=== PATIENT | female | born 1975 | race Caucasian/White ===

== ENCOUNTER 2019-06-21 09:13 | Emergency (ER) | payer OTHER, SELFPAY ==
[2019-06-21 09:38] VITALS: BP 144/105; PULSE 82; RESP 18; TEMP 36.3; O2SAT 100
--- NOTE | 2019-06-21 09:38 | ED.URI ---
HPI - URI/Sore Throat General Chief Complaint: Ear Stated Complaint: sore throat/ear pain right/left History of Present Illness HPI Narrative: This is a 44-year-old female comes in complaining of having a sore throat and ear pain according to patient she was seen last week for the same exact thing in urgent care patient states that her influenza and her throat swab was negative patient is continued to get worse stating that it hurts when she swallows patiently currently does not have a fever denies any nausea vomiting and/or diarrhea Related Data Allergies Allergy/AdvReac Type Severity Reaction Status Date / Time No Known Allergies Allergy Unverified 03/12/17 09:23 NKFA Allergy Unknown Uncoded 12/19/05 08:28 Review of Systems Review of Systems: Narrative: CONSTITUTIONAL: Denies fever, chills, or sweats. EYES: Denies visual changes, redness, or discharge. ENT: Reports rhinorrhea, congestion, sore throat, or otalgia. CARDIOVASCULAR:Denies chest pain, palpitations, or edema. RESPIRATORY: Denies cough or dyspnea. GASTROINTESTINAL: Denies abdominal pain, nausea, vomiting, or diarrhea. GENITOURINARY: Denies dysuria or hematuria. SKIN:[Denies rash or itching. MUSCULOSKELETAL:Denies back pain, joint pain, or myalgia. NEUROLOGIC: Denies headache, numbness, or weakness. PSYCHIATRIC:Denies anxiety or depression PMFSH Comments At time as signature, I have reviewed and agree with nursing past medical, social, surgical and family history. Please see nursing chart for further information. There is no relevant family history pertinent to the presenting complaint. Exam Narrative: Exam Narrative: GENERAL:Well-appearing, well-nourished, and in no acute distress. HEAD:Normocephalic, atraumatic. EYES: PERRLA and EOMI. ENT: Nares clear, no rhinorrhea or epistaxis. Mucous membranes moist. Pharyngeal erythema oral lesions in the back of the throat enlarged tonsils copious postnasal drainage TM bulging clear NECK: Supple. CHEST: Clear to auscultation. No respiratory distress. HEART: Regular rate and rhythm. No murmur heard. Normal peripheral pulses. ABDOMEN: Soft, nontender, nondistended, normal active bowel sounds. EXTREMITIES: Normal range of motion. No edema. SKIN: Warm, dry, no rash. NEURO: No focal deficits. Alert and oriented x3. Course Vital Signs Vital signs: Vital Signs Temperature 97.3 F L 06/21/19 09:38 Pulse Rate 82 06/21/19 09:38 Respiratory Rate 18 06/21/19 09:38 Blood Pressure 144/105 H 06/21/19 09:38 Pulse Oximetry 100 06/21/19 09:38 Temperature 97.3 F L 06/21/19 09:38 Pulse Rate 82 06/21/19 09:38 Respiratory Rate 18 06/21/19 09:38 Blood Pressure 144/105 H 06/21/19 09:38 Pulse Oximetry 100 06/21/19 09:38 MDM - URI/Sore Throat Differential Diagnosis Differential diagnosis: Likely upper respiratory infection, otitis media, viral infection and pharyngitis Lab Data Labs: Strep Screen Positive Group A Strep *(Reference Range: Negative)* Discharge Plan Discharge Clinical Impression: Strep throat Pharyngitis Qualifiers: Pharyngitis/tonsillitis etiology: unspecified etiology Qualified Code(s): J02.9 - Acute pharyngitis, unspecified Hypertension Qualifiers: Hypertension type: unspecified Qualified Code(s): I10 - Essential (primary) hypertension Patient Disposition: Home, Self-Care Condition: Stable Instructions: Antibiotic Form, Pharyngitis (ED), Strep Throat (ED), Hypertension (ED) Additional Instructions: You have tested positive, for Strep throat Please take all of your Antibiotics Salt water gargles may alleviate some of your throat discomfort. Take Tylenol and/or ibuprofen per the package instructions for pain/fever. Go to the ER if your symptoms become worse of if ANY new symptoms develop You need to call you PCP tomorrow to get additional refills there is no good reason for you to be without your blood pressure medication . I
== END 2019-06-21 10:20 | disposition home or self-care (01) ==
PROVIDERS: Emergency Provider Nurse Practitioner Family; PCP Registered Nurse
DX: J02.0 Streptococcal pharyngitis (principal); I10 Essential (primary) hypertension
CPT/HCPCS: 87880; 99213; G0463

== ENCOUNTER → 2020-03-17 10:12 | Outpatient (CLI) | payer OTHER, SELFPAY ==
--- NOTE | ~2020-03-17 | MM_ITS ---
EXAMINATION: MM screening [facility] BI w lisandro HISTORY: Screening mammogram TECHNIQUE: Craniocaudal and mediolateral oblique 3-D tomosynthesis images were obtained and synthetic 2-D images were generated. CAD analysis was submitted and interpreted. COMPARISON: 07/28/2015, 07/14/2015 BREAST PARENCHYMAL COMPOSITION: There are scattered areas of fibroglandular density. FINDINGS: A 1.6 cm mass in the upper outer quadrant of the right breast is stable since 2016, consist ent with a benign finding. There is no evidence of suspicious mass, calcification, or architectural d istortion to suggest malignancy in either breast. There has been no suspicious interval change. IMPRESSION: 1. No mammographic evidence of malignancy. 2. Recommend routine screening mammography in one year. BI-RADS Category 2: Benign finding(s). Reviewed, dictated and finalized at location A. TOLOGIST
== END ==
PROVIDERS: PCP Registered Nurse; Visit Provider Registered Nurse
DX: Z12.31 Encounter for screening mammogram for malignant neoplasm of breast (principal)
CPT/HCPCS: 77063; 77067

== ENCOUNTER 2020-07-20 09:23 | Emergency (ER) | payer OTHER, SELFPAY ==
--- NOTE | ~2020-07-20 | XR_ITS ---
EXAMINATION: XR shoulder LT min 2V DATE: 07/20/2020 09:57 INDICATION: Left shoulder pain post fall 2 days prior TECHNIQUE: AP internally and externally rotated, AP oblique externally rotated and transscapular Y vi ews of the left shoulder were obtained. COMPARISON: None FINDINGS: Normal alignment. No fracture. Glenohumeral joint is normal. Acromioclavicular joint is normal. Soft tissues are unremarkable. IMPRESSION: Negative left shoulder radiographs. Reviewed, dictated and finalized at location A.
--- NOTE | ~2020-07-20 | XR_ITS ---
EXAMINATION: XR elbow LT min 3V DATE: 07/20/2020 09:57 INDICATION: Left elbow pain post fall 2 days prior TECHNIQUE: Anteroposterior, two oblique and lateral views of the left elbow were obtained. COMPARISON: None. FINDINGS: Alignment is normal. No fracture or joint effusion. Joint spaces are normal. Left tissue with subcuta neous edema at the medial side of the elbow. IMPRESSION: 1. No left elbow joint effusion or osseous abnormality. Reviewed, dictated and finalized at location A.
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
[2020-07-20 09:34] VITALS: BP 149/91; PULSE 84; RESP 16; TEMP 36.8; O2SAT 99
[2020-07-20] MEDS: TETANUS,DIPHTHERIA,AC PERTUSSIS ADULT (0.5 ML) BOOSTRIX IM (10:20)
== END 2020-07-20 10:36 | disposition home or self-care (01) ==
PROVIDERS: Emergency Provider Nurse Practitioner; PCP Registered Nurse
DX: S46.912A Strain of unspecified muscle, fascia and tendon at shoulder and upper arm level, left arm, initial encounter (principal); S46.919A Strain of unspecified muscle, fascia and tendon at shoulder and upper arm level, unspecified arm, initial encounter; S50.819A Abrasion of unspecified forearm, initial encounter; V28.4XXA Motorcycle driver injured in noncollision transport accident in traffic accident, initial encounter; Z23 Encounter for immunization; I10 Essential (primary) hypertension
CPT/HCPCS: 73030; 73080; 90471; 90715; 99214; G0463

== ENCOUNTER → 2021-05-05 06:56 | Outpatient (CLI) | payer OTHER, SELFPAY ==
--- NOTE | ~2021-05-05 | MM_ITS ---
EXAMINATION: MM screening [facility] BI w lisandro HISTORY: Screening TECHNIQUE: Craniocaudal and mediolateral oblique 3-D tomosynthesis images were obtained and synthetic 2-D images were generated. CAD analysis was submitted and interpreted. COMPARISON: Comparison to multiple prior studies sequentially, with oldest reviewed study dated 07/13. BREAST PARENCHYMAL COMPOSITION: There are scattered areas of fibroglandular density. FINDINGS: Stable benign-appearing bilateral breast masses. There is no evidence of suspicious mass, c alcification, or architectural distortion to suggest malignancy in either breast. There has been no s uspicious interval change. IMPRESSION: 1. No mammographic evidence of malignancy. 2. Recommend routine screening mammography in one year. BI-RADS Category 2: Benign finding(s). Reviewed, dictated and finalized at location A. CAL PHYSICIST
== END ==
PROVIDERS: PCP Registered Nurse; Visit Provider Registered Nurse
DX: Z12.31 Encounter for screening mammogram for malignant neoplasm of breast (principal)
CPT/HCPCS: 77063; 77067

== ENCOUNTER 2021-12-19 15:17 | Outpatient (CLI) | payer BC, SELFPAY ==
--- NOTE | 2021-12-19 15:29 | ECG_ITS ---
Measurements Intervals [place] Rate: 73 P: 27 VA: 158 QRS: -22 QRSD: 102 T: 0 QT: 397 QTc: 440 Interpretive Statements SINUS RHYTHM VOLTAGE CRITERIA FOR LVH CANNOT RULE ANTERIOR MYOCARDIAL INFARCTION ABNORMAL ECG NO PREVIOUS ECG AVAILABLE FOR COMPARISON Electronically Signed On 12-19-2021 17:11:00 CDT by Ryan Adam M.D.
== END 2021-12-19 15:18 | disposition home or self-care (01) ==
LOC: ANHSURGERY 15:23
PROVIDERS: PCP Registered Nurse; Visit Provider Obstetrics & Gynecology
DX: N92.1 Excessive and frequent menstruation with irregular cycle (principal); I10 Essential (primary) hypertension; Z01.818 Encounter for other preprocedural examination; R94.31 Abnormal electrocardiogram [ECG] [EKG]
CPT/HCPCS: 36415; 86850; 86900; 86901; 93005

== ENCOUNTER 2021-12-21 01:32 | Day surgery (SDC) | payer BC, SELFPAY ==
[2021-12-18 10:33] VITALS: BMI 37.5
--- NOTE | 2021-12-18 10:45 | PC.NURSE ---
Report to the Outpatient Waiting Room, entrance under the green pavilion located off [facility], at time 6:00 on date 12/21/21. OR Time: 7:30. Time changes happen often and if your time is changed the preop area will call you the afternoon before. - You and your visitor will be asked to self-screen and do not enter if you have any COVID symptoms. - Only one visitor and NO children visitors are allowed at this time. YOU WILL BE ALLOWED 2 VISITORS AT A TIME ONCE YOU ARE IN YOUR ROOM AFTER SURGERY - The patient visitor is requested to leave or wait in car when not with patient due to restrictions. - A mask is required within the hospital. Patients may have clear liquids (water, carbonated beverages, clear teas, apple juice) until 3 hours prior to surgery (4:30) with a maximum of 20 ounces. - No food from midnight until time of surgery Take the following medications with a SIP of water the morning of surgery: NONE Medications to discontinue per physician: N/A Date to take last dose: N/A Please no make-up, nail slovenian, hairspray, perfume, deodorant, or body powder the day of surgery. No jewelry (including any body piercings) or valuables the day of surgery, leave them at home. Please take a shower or bath the night before, or the morning of, surgery with an antibacterial soap. Wear comfortable, loose fitting clothing. - Jewelry must be removed prior to entering the operating room. Rings and piercings that are not removed may be cut off. - The hospital will not accept responsibility for valuables. - Please leave all valuables, including medications, at home the day of surgery. If you are going home after surgery, a licensed wood pile driver operator must drive you home. - NO public transportation without another adult. - We recommend that an adult stay with you for 24 hours following discharge. - We also recommend that you do not drive, make important decision, drink alcoholic beverages, or take any drugs that were not prescribed by your health care provider for at least 24 hours after your discharge time. Follow any additional instructions given to you from your surgeon. If you or anyone in your household have experienced Covid symptoms in the past week, please notify your surgeon or the nurse liaison at the phone number below for possible testing. Telephone instructions given to PT - WAGNER REECE and asked if any additional questions and then verbalized understanding. Patient advised to call surgeon office or pre surgery nurse liaison [phone] if any additional questions.
--- NOTE | 2021-12-20 07:46 | PM.IMHP ---
H&P: HPI History of Present Illness Date/Time: 12/20/21 07:46 46-year-old 2 para 2000 female presents with complaints of menstrual cycle lasting 5-7 days with 2-3 days very heavy clotting and significant cramping. Os with pelvic pain and cramping between periods and has begun have intermenstrual spotting as well. She denies desire for any type of hormone manipulation, and desires definitive therapy in the form of hysterectomy. She has had an ultrasound which shows an enlarged uterus as well as uterine fibroid. Chief Complaint: Menometrorrhagia Review of Systems Review of Systems: All systems reviewed & are unremarkable except as noted in HPI and below PMFSH Past Medical History Medical History (Updated 12/20/21 @ 07:48 by Abdirizak Starks MD) Hypertension Menometrorrhagia Surgical History Surgical History History of tonsillectomy Family History Family History Daughter Diabetes mellitus Mother Breast cancer Social History Social History (Updated 09/12/21 @ 15:53 by FER Serrato) Smoking packs per day: 0.5 Smoking cigarettes per day: 10.0 Years smoked: 15 Smoking pack-years: 7.50 Smoking status: Former smoker Tobacco type: cigarettes Smoking end date: 03/18/14 Alcohol intake: current Drinks per week: 14 Substance use: current Substance use type: marijuana Other substance usage details: 2 x week Additional living arrangements comments: 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 Gender identity (if verbalized by the patient): Female Sexual Orientation (if Verbalized by the Patient): Lesbian, Rider, or Homosexual Spiritual care concerns: No Meds Home Medications and Allergies Home Medications Medication Instructions Recorded Confirmed Type losartan 50 mg tablet 50 mg PO DAILY 07/20/20 12/18/21 History Allergies Allergy/AdvReac Type Severity Reaction Status Date / Time No Known Allergies Allergy Verified 12/18/21 10:33 Exam Const: General: cooperative, healthy appearing and comfortable Resp: Effort & Inspection: normal respiratory effort Auscultation: clear to auscultation bilaterally Cardio: Rate: regular rate Rhythm: regular rhythm GI: Inspection: normal to inspection Auscultation: normal bowel sounds : External Female Exam: normal external appearance Speculum Exam - Vagina: normal appearance of the vagina Speculum Exam - Cervix: normal appearance of the cervix Bimanual exam- vagina & uterus: enlarged ( 10-12 week size) Bimanual Exam- Adnexa, other: normal adnexae Assessment and Plan Assessment and plan (1) Menometrorrhagia: Code(s): N92.1 - Excessive and frequent menstruation with irregular cycle Status: Acute (2) Enlarged uterus: Code(s): N85.2 - Hypertrophy of uterus Status: Acute (3) Uterine fibroid: Code(s): D25.9 - Leiomyoma of uterus, unspecified Status: Acute Plan proceed with robotic assisted hysterectomy with bilateral salpingectomy.
[2021-12-21] VITALS (11 sets, daily range): BP systolic 94–162; BP diastolic 48–93; PULSE 50–72; RESP 14–18; TEMP 36.2–36.8; O2SAT 98–100
[2021-12-21] MEDS: KETOROLAC 15 MG/ML VIAL (*BKC) IV PUSH (06:50)
[2021-12-21] MEDS: LACTATED RINGERS 1,000 ML 30 ML IV CONT ×3 (06:50→09:47)
[2021-12-21] MEDS: ACETAMINOPHEN 500 MG TABLET 1000 MG PO (06:50)
--- NOTE | 2021-12-21 07:00 | P.PNAN_ITS ---
Anes - Initial Pre Proc Eval Procedure: Operation Date: 12/21/21 07:30 Proposed Procedures p Robotic Assisted Total Laparoscopic Hysterectomy with Bilateral Salpingectomy - Abdirizak Starks MD Date/Time: 12/21/21 07:00 Surgeon: Abdirizak Starks MD Pre Op Diagnosis: menometrorrhagia, uterine fibroid Patient Data Age: 46 Gender: F Height: 1.7 m Weight: 108.86 kg Allergies Allergy/AdvReac Type Severity Reaction Status Date / Time No Known Allergies Allergy Verified 12/21/21 06:57 Home Medications Medication Instructions Recorded Confirmed Type losartan 50 mg tablet 50 mg PO DAILY 07/20/20 12/18/21 History Patient hx anesthesia problems: other (motion sickness) Family hx anesthesia problems: none Results Review: All pre-operative results and documents have been reviewed as part of the pre- operative evaluation. [facility] Past Medical History Medical History Chronic pain syndrome Hypertension Menometrorrhagia Polysubstance use disorder Surgical History Surgical History History of tonsillectomy Family History Family History Daughter Diabetes mellitus Mother Breast cancer Social History Social History Smoking packs per day: 0.5 Smoking cigarettes per day: 10.0 Years smoked: 15 Smoking pack-years: 7.50 Smoking status: Former smoker Tobacco type: cigarettes Smoking end date: 03/18/14 Alcohol intake: current Drinks per week: 14 Substance use: current Substance use type: marijuana Other substance usage details: 2 x week Living arrangements: with family Additional living arrangements comments: 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 Gender identity (if verbalized by the patient): Female Sexual Orientation (if Verbalized by the Patient): Lesbian, Rider, or Homosexual Spiritual care concerns: No Anes - Eval Final PreProcedure Day of Procedure 12/21/21 07:00 Patient weight: obese Heart: regular rate and rhythm Lungs: decreased breath sounds Airway: Mallampati scale class III Neurological: alert and oriented Last oral intake: >/= 8 hours ASA classification: III Emergent: no Anesthetic plan: proceed Anesthesia type and monitoring: general ETT and standard monitoring Results Review: All pre-operative results and documents have been reviewed as part of the pre-operative evaluation. Informed Consent: The patient's anesthetic plan and its attendant risks and benefits were discussed with the patient/family/POA. Questions were solicited and answers provided to the satisfaction of the patient/family/POA.
[2021-12-21] MEDS: SCOPOLAMINE 1.5 MG PATCH TRANSDERM (07:07)
--- NOTE | 2021-12-21 07:21 | WPDHPUPDATE1 ---
History and Physical Update Update Date/Time: 12/21/21 07:21 History and Physical has been reviewed, including an updated exam of the patient. There are NO changes in the patient's condition. Risks, benefits, and alternatives have been discussed and questions answered. Patient agrees to proceed with procedure.
[2021-12-21] MEDS: ceFAZolin 2 GM/D5W 50 ML 2 GM/50 ML BAG IVPB (07:34)
--- NOTE | 2021-12-21 09:26 | W.PM.PROC2 ---
Procedure Note - Detailed Date of Procedure 12/21/21 Pre-op Diagnosis menometrorrhagia, uterine fibroid Post-op Diagnosis Same Procedure Performed 1. Robotic assisted total laparoscopic hysterectomy with bilateral salpingo oophorectomy Surgeon Abdirizak Starks MD Anesthesia General Findings 1. Enlarged fibroid uterus with a weight of 262 g 2. Ovaries without abnormality. Description of Procedure Patient prepped and draped usual manner for this procedure. Cervical instruments were placed for uterine mobility throughout the case. Abdominal trocar sites were then marked and trocars were placed under direct visualization attach the [employer] system and instruments were placed. Surgeon moved to the console with findings as noted above. The round ligament were cauterized and cut anterior portion was dissected to form the bladder flap and the posterior portion to help skeletonize the uterine vessels. The mesial salpinx was then cauterized and cut and tubes were removed separately. Utero-ovarian ligaments were cauterized and cut to separate the ovary from the uterus as well. Once the uterine vessels were skeletonized they were cauterized and cut and the anterior colpotomy incision was made and this was carried circumferentially to separate the cervix from the vaginal cuff. Uterus was delivered into the vagina and then the cuff was closed using V lock suture from the right angle to the midline and left angle to midline with good hemostasis and approximation noted. After a period of observation and there being no further bleeding Marlena was placed empirically over all the incision sites, gas was allowed to escape. Incisions were approximated using 4-0 Monocryl glue once the trocars removed. At this point the patient was sent to recovery room in stable condition. Estimated Blood Loss 200 Urine Output 150 Drains No Packing No Pathology Yes Complications No immediate complications Condition Stable Disposition PACU [facility] Billing Surgery - Charge Forward: Surgery Billing
[2021-12-21] MEDS: fentaNYL CITRATE INJ (*CRX) 100 MCG/2 ML VIAL 25 MCG IV PUSH ×4 (09:54→10:37)
--- NOTE | 2021-12-21 11:20 | PC.NURSE ---
PT arrived on unit via bed accompanied by spouse and taken to room 278. PT oriented to room and surrounding area. PT introductions made and plan of care discussed per post op market research associate surgery, pain management, daily care activities. PT and spouse both recipients of such instructions and no barriers to learning identified at this time. PT received such instructions per one to one discussion and demonstrations. PT verbalized understanding of such care.
[2021-12-21] MEDS: DEXTROSE 5%/LACTATED RINGERS 1,000 ML 125 ML IV CONT (11:50)
[2021-12-21] MEDS: KETOROLAC 30 MG/ML VIAL (*BKC) IV PUSH (11:50)
[2021-12-21] MEDS: HYDROcodone/acetaminophen (*CRX) 10-325 MG TABLET 1 TAB PO (14:07)
[2021-12-21] MEDS: SIMETHICONE 80 MG TAB.CHEW PO (17:34)
[2021-12-21] MEDS: HYDROcodone/acetaminophen (*CRX) 5-325 MG TABLET 1 TAB PO ×2 (17:34→21:47)
[2021-12-21] MEDS: IBUPROFEN 600 MG TABLET PO (17:35)
[2021-12-22 05:00] VITALS: BP 109/63; PULSE 74; RESP 16; TEMP 36.4
[2021-12-22] MEDS: HYDROcodone/acetaminophen (*CRX) 5-325 MG TABLET 1 TAB PO (05:11)
[2021-12-22] MEDS: IBUPROFEN 600 MG TABLET PO (05:11)
[2021-12-22 05:32] LABS: Basophils Percent Auto 0.3 % (0.2-1.2); Hematocrit 31.4 % (37.0-47.0); Hemoglobin 10.2 g/dL (12.0-15.0); Immature Granulocyte Absolute 0.06 K/mm3 (0.00-0.031); Immature Granulocyte Percent A 0.6 % (0-0.5); Immature Platelet Fraction Pct 4.6 % (0.9-11.2); Lymphocytes Absolute Auto 1.53 K/mm3 (0.9-3.2); Lymphocytes Percent Auto 14.7 % (18.3-44.2); Mean Corpuscular HGB Conc 32.5 g/dl (32-36); Mean Corpuscular Hemoglobin 31.6 pg (26-34); Mean Corpuscular Volume 97.2 fl (80-100); Mean Platelet Volume 10.4 fl (7.4-10.4); Monocytes Absolute Auto 0.7 K/mm3 (0.1-0.6); Monocytes Percent Auto 6.8 % (2.6-8.5); Neutrophils Absolute Auto 8.1 K/mm3 (1.3-6.7); Neutrophils Percent Auto 77.6 % (45.5-73.1); Platelet Count Result 226 k/mm3 (150-375); Red Blood Count 3.23 M/mm3 (4.2-5.4); Red Cell Distribution Width 12.1 % (11.5-14.5); White Blood Count 10.4 K/mm3 (4.5-10.0)
[2021-12-22 07:33] VITALS: BP 133/64; PULSE 66; RESP 16; TEMP 36.8; O2SAT 97
--- NOTE | 2021-12-22 08:11 | WPDANESPN ---
Anes - Prog Note Post-Op Date/Time: 12/22/21 08:11 Cardiovascular status: normal Respiratory status: normal Airway patency: baseline Mental status: baseline Post-Op hydration status: normal Vital Signs: Last Vital Signs Temp 98.3 F 12/22/21 07:33 Pulse 66 12/22/21 07:33 Resp 16 12/22/21 07:33 BP 133/64 12/22/21 07:33 Pulse Ox 97 12/22/21 07:33 O2 Del Method Nasal Cannula 12/21/21 11:30 O2 Flow Rate 2 12/21/21 11:30 Pain Score (VAS): 0 I/O: Intake & Output 12/21/21 12/22/21 12/22/21 23:59 07:59 15:59 Intake Total 1780 Output Total 300 Balance 1480 Laboratory Tests 12/22/21 05:07 12/22/21 05:07 WBC 10.4 H RBC 3.23 L Hgb 10.2 L Hct 31.4 L MCV 97.2 MCH 31.6 MCHC 32.5 RDW 12.1 Plt Count 226 MPV 10.4 Immature Gran % (Auto) 0.6 H Neut % (Auto) 77.6 H Lymph % (Auto) 14.7 L [place] % (Auto) 6.8 Eos % (Auto) 0.0 Baso % (Auto) 0.3 Lymph # (Auto) 1.53 [place] # (Auto) 0.7 H Eos # (Auto) 0.0 Baso # (Auto) 0.0 Abs Immat Gran (auto) 0.06 H Absolute Neuts (auto) 8.1 H Absolute Nucleated RBC 0.0 Nucleated RBC % 0.0 % Immature Plt Fraction 4.6 Post-procedural complaints: none Patient Feedback: Patient satisfied with anesthetic care.
== END 2021-12-22 08:19 | disposition home or self-care (01) ==
LOC: ANHSURGERY 05:47 → ANHOB2 11:43
PROVIDERS: PCP Registered Nurse; Visit Provider Obstetrics & Gynecology
PROC: (CPT 58552; principal; 2021-12-21 07:30)
DX: N92.1 Excessive and frequent menstruation with irregular cycle (principal); N85.2 Hypertrophy of uterus; D25.9 Leiomyoma of uterus, unspecified; I10 Essential (primary) hypertension; Z87.891 Personal history of nicotine dependence
CPT/HCPCS: 58552; S2900; 36415; 85025; 85055; 88307; 99199; A9270; J0690; J1100; J1170; J1200; J1885; J2250; J2405; J2704; J2710; J2765; J3010; J7030; J7120; J7121

== ENCOUNTER 2022-01-05 08:56 | Emergency (ER) | payer OTHER, BC, SELFPAY ==
[2022-01-05 09:06] VITALS: BP 137/91; PULSE 86; RESP 16; TEMP 36.7; O2SAT 99
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
== END 2022-01-05 09:49 | disposition home or self-care (01) ==
PROVIDERS: Emergency Provider Nurse Practitioner; PCP Registered Nurse
DX: S16.1XXA Strain of muscle, fascia and tendon at neck level, initial encounter (principal); V89.2XXA Person injured in unspecified motor-vehicle accident, traffic, initial encounter; Z87.891 Personal history of nicotine dependence; I10 Essential (primary) hypertension
CPT/HCPCS: 99213; G0463

== ENCOUNTER 2022-06-20 07:35 | Outpatient (CLI) | payer OTHER, SELFPAY ==
--- NOTE | ~2022-06-20 | US_ITS ---
EXAMINATION: US right upper quadrant DATE: 06/20/2022 08:18 INDICATION: Elevated liver enzymes TECHNIQUE: Multiple grayscale and Doppler ultrasound images of the abdomen were obtained. COMPARISON: None available FINDINGS: The head and body of the pancreas are normal. The pancreatic tail is obscured by bowel gas. The liver demonstrates increased echogenicity, heterogenous echotexture, and decreased through trans mission. No surface nodularity. Normal hepatopetal flow in the main portal vein. The gallbladder is n ormal with no abnormal wall thickening, pericholecystic fluid or stones. The normal common bile duct measures 4 mm. There was no sonographic Sofia sign. IMPRESSION: 1. Diffuse hepatic steatosis. Reviewed, dictated and finalized at location B.
== END 2022-06-20 07:36 ==
PROVIDERS: PCP Registered Nurse; Visit Provider Registered Nurse
DX: R74.8 Abnormal levels of other serum enzymes (principal)
CPT/HCPCS: 76705

== ENCOUNTER 2023-03-09 17:18 | Emergency (ER) | payer OTHER, SELFPAY ==
[2023-03-09 17:38] VITALS: BP 156/93; PULSE 92; RESP 16; TEMP 36.7; O2SAT 100
--- NOTE | 2023-03-09 17:46 | ED.URI ---
HPI - URI/Sore Throat General Chief Complaint: Fever Stated Complaint: Fever Time Seen by Provider: 03/09/23 17:46 Source: patient, RN notes reviewed and old records reviewed Mode of arrival: ambulatory Limitations: no limitations History of Present Illness HPI Narrative: 47-year-old female presents to the [facility] with complaints of a fever Has a wound to the dorsal aspect right foot, open wounds noted. Also has wounds to the right anterior eden. Related Data Allergies Allergy/AdvReac Type Severity Reaction Status Date / Time No Known Allergies Allergy Verified 03/09/23 17:32 Review of Systems Review of Systems: All systems reviewed & are unremarkable except as noted in HPI and below Constitutional: Constitutional: Reports as per HPI, Reports body ache(s), Reports fatigue and Reports fever(s) Eyes: Eyes: Reports no additional eye complaints ENT: Reports system reviewed and no additional complaints, except as documented Cardiovascular: Cardiovascular: Reports no additional cardiovascular complaints, Denies chest pain and Denies dyspnea Respiratory: Respiratory: Reports no additional respiratory complaints, Denies chest congestion, Denies cough and Denies dyspnea Gastrointestinal: Gastrointestinal: Reports no additional gastrointestinal complaints, Denies abdominal pain, Denies nausea and Denies vomiting Musculoskeletal: Musculoskeletal: Reports no additional musculoskeletal complaints Neurologic: Reports system reviewed and no additional complaints, except as documented Psychiatric: Psychiatric: Reports no additional psychiatric complaints Allergic/Immunologic: Allergic/Immunologic: Reports no additional allergic/immunologic complaints [facility] Past Medical History Medical History Chronic pain syndrome Hypertension Menometrorrhagia Polysubstance use disorder Surgical History Surgical History History of robot-assisted laparoscopic hysterectomy (12/21/21) RATLH with Bilateral salpingectomy History of tonsillectomy Family History Family History Daughter Diabetes mellitus Mother Breast cancer Social History Social History Smoking packs per day: 0.5 Smoking cigarettes per day: 10.0 Years smoked: 15 Smoking pack-years: 7.50 Smoking status: Former smoker Tobacco type: cigarettes Smoking end date: 01/01/15 Alcohol intake: current Drinks per week: 14 Substance use: current Substance use type: marijuana Other substance usage details: 2 x week Living arrangements: with family Additional living arrangements comments: Occupation/Education: occupation 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 There is no relevant family history pertinent to the patient complaint. Exam Const: General: cooperative, healthy appearing, comfortable, no acute distress, well developed, alert and well nourished Nutritional Appearance: well nourished Orientation/consciousness: patient oriented x3 Limitations: no limitations HENMT: Head: normal to inspection Ears: hearing grossly normal bilaterally and external ears normal Face/Nose/Sinus: Normal external nose present, Normal nares present, Normal nasal mucous membranes and turbinates present, normal facial exam and face symmetric Face and sinus: normal facial exam and face symmetric Eyes: General: appearance normal, both eyes and all related structures Alignment and Position: alignment normal Periorbital: periorbital f
== END 2023-03-09 18:08 | disposition home or self-care (01) ==
PROVIDERS: Emergency Provider Nurse Practitioner; PCP Registered Nurse
DX: L03.115 Cellulitis of right lower limb (principal); Z87.891 Personal history of nicotine dependence; I10 Essential (primary) hypertension
CPT/HCPCS: 87804; 99213; G0463

== ENCOUNTER 2023-03-11 16:31 | Inpatient (IN) | payer OTHER, SELFPAY ==
[2023-03-11 16:32] VITALS: BP 117/72; PULSE 106; RESP 20; TEMP 37.2; O2SAT 98
[2023-03-11 16:43] VITALS: BP 112/71; PULSE 88; RESP 16; O2SAT 94
[2023-03-11 17:17] LABS: Basophils Absolute Auto 0.1 K/mm3 (0.0-0.1); Basophils Percent Auto 0.8 % (0.2-1.2); Eosinophils Percent Auto 0.3 % (0-4.4); Hematocrit 36.8 % (37.0-47.0); Hemoglobin 12.3 g/dL (12.0-15.0); Immature Granulocyte Absolute 0.06 K/mm3 (0.00-0.031); Immature Granulocyte Percent A 0.6 % (0-0.5); Lymphocytes Absolute Auto 1.74 K/mm3 (0.9-3.2); Lymphocytes Percent Auto 18.6 % (18.3-44.2); Mean Corpuscular HGB Conc 33.4 g/dl (32-36); Mean Corpuscular Hemoglobin 31.3 pg (26-34); Mean Corpuscular Volume 93.6 fl (80-100); Mean Platelet Volume 10.1 fl (7.4-10.4); Monocytes Absolute Auto 0.9 K/mm3 (0.1-0.6); Monocytes Percent Auto 9.1 % (2.6-8.5); Neutrophils Absolute Auto 6.6 K/mm3 (1.3-6.7); Neutrophils Percent Auto 70.6 % (45.5-73.1); Platelet Count Result 230 k/mm3 (150-375); Red Blood Count 3.93 M/mm3 (4.2-5.4); Red Cell Distribution Width 11.9 % (11.5-14.5); White Blood Count 9.3 K/mm3 (4.5-10.0)
[2023-03-11 17:24] LABS: Lactic Acid Reflex 1.8 mmol/L (0.7-2.0)
[2023-03-11 17:28] LABS: Alanine Aminotransferase 128 U/L (6-35); Albumin Level 4.3 g/dL (3.5-5.1); Alkaline Phosphatase 104 U/L (38-126); Anion Gap 15 mmol/L (8-16); Aspartate Amino Transferase 87 U/L (14-36); Bilirubin,Total 0.7 mg/dL (0.2-1.3); Blood Urea Nitrogen 7 mg/dL (7-17); Calcium 9.1 mg/dL (8.4-10.2); Carbon Dioxide 25 mmol/L (22-30); Chloride 97 mmol/L (98-107); Estimated CRCL calculation 109 ml/min; Estimated Glomerular Filt Rate > 60; Glucose 125 mg/dL (65-110); Potassium 3.1 mmol/L (3.4-5.0); Sodium 137 mmol/L (137-145)
[2023-03-11 17:36] LABS: Partial Thromboplastin Time 33.8 SECONDS (22.3-36.8)
[2023-03-11 17:42] LABS: Prothrombin Time 13.6 Seconds (11.1-14.7)
[2023-03-11 18:01] VITALS: BP 126/73; PULSE 89; RESP 16; O2SAT 95
--- NOTE | 2023-03-11 18:38 | ED.SKABFB ---
HPI - Skin/Abscess/Foreign Bdy General Chief complaint: Skin/Abscess/Foreign Body Stated complaint: CELLULITIS R LEG Time Seen by Provider: 03/11/23 16:42 History of Present Illness HPI narrative: Patient is a 47-year-old female who presents ER with concerns for infection to the right leg. Began 5 days ago. He has been placed on cephalexin. She has been having fevers and redness is spreading up her right leg towards her groin. She has some scabbed areas by her toes and midfoot on the right side where it started. She does have a similar scab to her left 5th digit. no vesicles. No problem with the itching/burning. No chest pain or shortness of breath. Patient does report some mild headache. Related Data Allergies Allergy/AdvReac Type Severity Reaction Status Date / Time No Known Allergies Allergy Verified 03/09/23 17:32 Review of Systems Review of Systems: All systems reviewed & are unremarkable except as noted in HPI and below Constitutional: Constitutional: Reports chills, Reports fatigue and Reports fever(s) ENT: Reports system reviewed and no additional complaints, except as documented Cardiovascular: Cardiovascular: Reports no additional cardiovascular complaints Respiratory: Respiratory: Reports no additional respiratory complaints Musculoskeletal: Musculoskeletal: Denies arthralgias and Denies joint swelling Integumentary/Breasts: Skin/Breast: Reports pruritus, Reports erythema and Reports skin ulcer PMF[facility] Past Medical History Medical History Chronic pain syndrome Hypertension Menometrorrhagia Polysubstance use disorder Surgical History Surgical History History of robot-assisted laparoscopic hysterectomy (12/21/21) RATLH with Bilateral salpingectomy History of tonsillectomy Family History Family History Daughter Diabetes mellitus Mother Breast cancer Social History Social History Smoking packs per day: 0.5 Smoking cigarettes per day: 10.0 Years smoked: 15 Smoking pack-years: 7.50 Smoking status: Former smoker Tobacco type: cigarettes Smoking end date: 03/18/14 Alcohol intake: current Drinks per week: 14 Substance use: current Substance use type: marijuana Other substance usage details: 2 x week Living arrangements: with family Additional living arrangements comments: Occupation/Education: occupation 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 HEAD: Normocephalic, atraumatic. ENT: Mucous membranes moist. NECK: Supple. CHEST: Clear to auscultation. No respiratory distress. HEART: Regular rate and rhythm. Normal peripheral pulses. EXTREMITIES: Normal range of motion. No edema. SKIN: Warm, dry. Cellulitis of lower extremity. Circumferentially around the right calf with initial source likely to the eden as well as the dorsum of the foot. Scabbing to lower foot as well. There are additional patches of cellulitis to the proximal thigh in lymphangitic streaking up the leg. There is a small scab to left 5th digit but no additional cellulitis to the leg. NEURO: Alert and oriented x3. PSYCH: Normal mood and affect. Course Course Emergency Course: Admit to hospitalist service for outpatient antibiotic failure. Vital Signs Vital signs: Vital Signs Temperature 98.9 F 03/11/23 16:32 Pulse Rate 106 H 03/11/23 16:32 Respiratory Rate 20 03/11/23 16:32 Blood Pressure 117/72 03/11/23 16:32 Pulse Oximetry 98 03/11/23 16:32 Oxygen Delivery Room
[2023-03-11] MEDS: MORPHINE SULFATE (*CRX) 4 MG/ML INJ IV PUSH (18:41)
[2023-03-11 18:44] VITALS: BP 129/77; PULSE 93; RESP 18; O2SAT 100
[2023-03-11] MEDS: ceFAZolin 1 GM/NS 50 ML 1 GM/50 ML BAG IVPB (19:06)
--- NOTE | 2023-03-11 19:07 | PC.NURSE ---
Per Dr. Khan no blood cultures needed
--- NOTE | 2023-03-11 19:17 | PC.NURSE ---
Assumed care of pt from LELAND Justice at this time.
[2023-03-11 20:01] VITALS: BP 111/68; PULSE 93; RESP 20; O2SAT 97
[2023-03-11] MEDS: VANCOMYCIN 1,500 MG/NS 500 ML 1,500 MG/500 ML BAG 250 MG IVPB (20:57)
--- NOTE | 2023-03-11 21:39 | PM.IMHP ---
H&P: HPI History of Present Illness Date/Time: 03/11/23 19:30 Chief Complaint: Worsening right leg infection. Narrative: This is a very pleasant 47-year-old female who presented to the emergency department via private vehicle from home for evaluation of a worsening right leg infection. The patient provides the following history. About 5 days ago she got home from work and notice a few open areas on the top of her right foot draining serous fluid. She works long hours and is on her feet a majority of the time and it is not necessarily unusual for her to have discomfort with her shoes as they seem to rub on top of the foot. That night there was some redness developing over the foot and she developed fever, sweats, reports having several episodes of emesis. She was seen at an urgent care on Saturday where she was diagnosed with cellulitis and she was prescribed cephalexin. She had the prescription filled on Saturday morning and has been taking it as directed but unfortunately it is getting worse with spreading erythema, edema, and warmth. Overall she does not feel well with generalized headache and a poor appetite. On exam she has a small wound on the lateral aspect of the left 5th toe which does not look infected however she thinks she may have used that toe to the scratch the top of the right foot when her symptoms 1st started. With further questioning she endorses frequent irritation from her shoes and socks. She has not used any new lotions or soaps. She has not had issues with contact dermatitis previously. No known history of MRSA. In the ED: She was afebrile on arrival with stable vital signs. Labs were significant for a WBC count of 9.3, potassium 3.1, chloride 97, lactic acid 1.8, glucose 125, AST 87, ALT 128. She was given 1 g of cefazolin and 1500 mg of vancomycin and she is being admitted in this setting for further IV antibiotics. Review of Systems Review of Systems: Twelve systems were reviewed and are negative except for as per HPI. [facility] Past Medical History Medical History (Updated 03/11/23 @ 21:48 by Apple Franklin PA-C) Chronic pain syndrome Hypertension Menometrorrhagia Polysubstance use disorder Surgical History Surgical History (Updated 03/11/23 @ 21:45 by Apple Franklin PA-C) History of robot-assisted laparoscopic hysterectomy (12/21/21) With bilateral salpingectomy. History of tonsillectomy Family History Family History Daughter Diabetes mellitus Mother Breast cancer Social History Social History (Updated 03/11/23 @ 21:46 by Apple Franklin PA-C) Social History: Surrogate medical decision maker: Katrina Smalls, . Code status: Full code. Smoking packs per day: 0.5 Smoking cigarettes per day: 10.0 Years smoked: 15 Smoking pack-years: 7.50 Smoking status: Former smoker Tobacco type: cigarettes Smoking end date: 03/18/14 Alcohol intake: current Drinks per week: 14 Substance use: current Substance use type: marijuana Other substance usage details: 2 x week Living arrangements: with family Additional living arrangements comments: . Lives with in [place]. She has 2 adult children. 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 Gender identity (if verbalized by the patient): Female Sexual Orientation (if Verbalized by the Patient): Lesbian, Rider, or Homosexual Spiritual care concerns: No Meds Home Medications and Allergies Home Medications Medication Instructions Recorded Confirmed Type cephalexin 500 mg capsule 500 mg PO QID 10 days #40 caps 03/09/23 Rx Allergies Allergy/AdvReac Type Severity Reaction Status Date / Time No Known Allergies Allergy Verified 03/09/23 17:32 Vital Signs Vital Signs - 24 hr 03/11/23 16:32 03/11/23 16:43 03/11/23 18:01 Temperature 98.9 F Pulse Rate 106
[2023-03-11 22:01] VITALS: BP 131/78; PULSE 80; RESP 16; O2SAT 95
--- NOTE | 2023-03-11 22:15 | ADMGEN ---
This patient, Gita Cohen, was admitted to Medical Room 342-01. Patient/family oriented to hospital policies and general routines including ID bracelet, bed and alarms, visiting hours, pain management, procedures, bathroom and other care routines, personal items, smoking policy, room service/diet, and visiting hours. Information on how to activate the Rapid Response Team has been discussed. Patient/Family are encouraged to report perceived risks to care and to ask questions if they do not understand what they are told or what they should do.
[2023-03-11 22:25] VITALS: BMI 38.5
[2023-03-11] MEDS: POTASSIUM CHLORIDE 20 MEQ ER TABLET PO (22:25)
[2023-03-11] MEDS: LACTATED RINGERS 1,000 ML 100 ML IV CONT (22:25)
[2023-03-11] MEDS: HYDROcodone/acetaminophen (*CRX) 5-325 MG TABLET 1 TAB PO (22:26)
[2023-03-12 00:50] VITALS: BP 131/77; PULSE 74; RESP 18; TEMP 37.1; O2SAT 96
[2023-03-12] MEDS: ceFAZolin 1 GM/NS 50 ML 1 GM/50 ML BAG IVPB ×3 (01:19→18:29)
[2023-03-12 06:00] VITALS: BP 130/74; PULSE 68; RESP 18; TEMP 36.6; O2SAT 96
[2023-03-12] MEDS: HYDROcodone/acetaminophen (*CRX) 5-325 MG TABLET 1 TAB PO ×3 (06:32→18:29)
[2023-03-12 07:38] LABS: Basophils Absolute Auto 0.1 K/mm3 (0.0-0.1); Basophils Percent Auto 0.8 % (0.2-1.2); Eosinophils Absolute Auto 0.1 K/mm3 (0-0.3); Eosinophils Percent Auto 1.3 % (0-4.4); Hemoglobin 11.8 g/dL (12.0-15.0); Immature Granulocyte Absolute 0.06 K/mm3 (0.00-0.031); Immature Granulocyte Percent A 0.8 % (0-0.5); Lymphocytes Absolute Auto 1.47 K/mm3 (0.9-3.2); Lymphocytes Percent Auto 18.7 % (18.3-44.2); Mean Corpuscular HGB Conc 32.8 g/dl (32-36); Mean Corpuscular Hemoglobin 31.3 pg (26-34); Mean Corpuscular Volume 95.5 fl (80-100); Mean Platelet Volume 10.2 fl (7.4-10.4); Monocytes Absolute Auto 0.9 K/mm3 (0.1-0.6); Monocytes Percent Auto 11.8 % (2.6-8.5); Neutrophils Absolute Auto 5.2 K/mm3 (1.3-6.7); Neutrophils Percent Auto 66.6 % (45.5-73.1); Platelet Count Result 222 k/mm3 (150-375); Red Blood Count 3.77 M/mm3 (4.2-5.4); White Blood Count 7.9 K/mm3 (4.5-10.0)
[2023-03-12 08:02] LABS: Alanine Aminotransferase 107 U/L (6-35); Albumin Level 3.8 g/dL (3.5-5.1); Alkaline Phosphatase 105 U/L (38-126); Anion Gap 9 mmol/L (8-16); Aspartate Amino Transferase 84 U/L (14-36); Bilirubin,Total 0.7 mg/dL (0.2-1.3); Blood Urea Nitrogen 7 mg/dL (7-17); Calcium 8.6 mg/dL (8.4-10.2); Carbon Dioxide 27 mmol/L (22-30); Chloride 101 mmol/L (98-107); Estimated CRCL calculation 148 ml/min; Estimated Glomerular Filt Rate > 60; Glucose 107 mg/dL (65-110); Potassium 3.5 mmol/L (3.4-5.0); Sodium 137 mmol/L (137-145)
[2023-03-12] MEDS: ENOXAPARIN 40 MG/0.4 ML SYRINGE SUB-Q (08:08)
[2023-03-12 08:14] LABS: CRP 12.7 mg/dL (<1.0)
--- NOTE | 2023-03-12 08:20 | PC.NURSE ---
IV antibiotic times staggered for infusions
[2023-03-12] MEDS: VANCOMYCIN 1,500 MG/NS 500 ML 1,500 MG/500 ML BAG 250 MG IVPB ×2 (09:00→20:07)
[2023-03-12] MEDS: MORPHINE SULFATE (*CRX) 4 MG/ML INJ 2 MG IV PUSH (09:54)
--- NOTE | 2023-03-12 14:13 | PM.IMPN ---
Progress Note: A&P Assessment and Plan (1) Cellulitis of right leg: Code(s): L03.115 - Cellulitis of right lower limb Status: Acute Assessment and Plan: Improving, will continue current treatment monitor closely. (2) Hypokalemia: Code(s): E87.6 - Hypokalemia Status: Acute Assessment and Plan: Potassium will be replaced and monitored. (3) Dehydration: Code(s): E86.0 - Dehydration Status: Acute Assessment and Plan: Better and improving Subjective Date/time seen: 03/12/23 14:13 Interval history: Patient was seen during morning rounds today. Patient pain is under control. No shortness of breath or chest pain. No abdominal pain, nausea, no vomiting. Mood stable Review of Systems Review of Systems: Twelve systems were reviewed and are negative except for as per HPI. Exam Narrative: General: Mildly ill-appearing female in the semi-Russell position in bed in no distress. Weight: 108 kg. BMI: 38.4. HEENT: PERRL, EOMI. Sclera anicteric. Tacky mucous membranes. Neck: Supple. Respiratory: Lungs are clear to auscultation bilaterally. Cardiovascular: Regular rate and rhythm with S1-S2. Gastrointestinal: Abdomen is soft, nontender, and nondistended with positive bowel sounds. Skin: Warm and dry. There are several scattered, scabbed areas on the dorsal aspect of the distal right forefoot with surrounding erythema, edema, and warmth. The edema and warmth extend up to the knee with lymphangitic streaking just above the knee on the medial thigh. There is a separate, raised erythematous plaque on the right anterior eden. There is a small scabbed wound on the lateral aspect of the left 5th toe as well. Extremities: No cyanosis or clubbing. Right lower extremity is edematous and is likely reactive from underlying infection. Radial and pedal pulses intact. Except as noted in skin exam Neurological: Alert. Cranial nerves 2-12 are grossly intact. No gross focal deficits to casual conversation. Psychiatric: Pleasant and cooperative with normal mood and affect. Judgment and insight intact. Objective Data Vital Signs Vital Signs: Vital Signs - 24 hr 03/11/23 16:32 03/11/23 16:43 03/11/23 18:01 Temperature 37.2 C Pulse Rate 106 H 88 89 Respiratory Rate 20 16 16 Blood Pressure 117/72 112/71 126/73 Pulse Oximetry 98 94 95 Oxygen Delivery Room Air 03/11/23 18:44 03/11/23 20:01 03/11/23 22:01 Temperature Pulse Rate 93 93 80 Respiratory Rate 18 20 16 Blood Pressure 129/77 111/68 131/78 Pulse Oximetry 100 97 95 Oxygen Delivery 03/12/23 01:55 03/12/23 00:50 03/12/23 06:00 Temperature 37.1 C 36.6 C Pulse Rate 74 68 Respiratory Rate 18 18 Blood Pressure 131/77 130/74 Pulse Oximetry 96 96 Oxygen Delivery Room Air 03/12/23 08:22 Temperature Pulse Rate Respiratory Rate Blood Pressure Pulse Oximetry Oxygen Delivery Room Air Intake/Output Intake/Output: Intake & Output 03/09/23 03/10/23 03/11/23 03/12/23 23:59 23:59 23:59 23:59 Intake Total 50 1580 Output Total 1500 Balance 50 80 Meds/Results Medications: Active Medications Generic Name Dose Route Start Last Admin Trade Name Freq PRN Reason Stop Dose Admin Acetaminophen 650 mg 03/11/23 18:41 Acetaminophen 325 Mg Tablet PO Q4H PRN Mild Pain (1-3) or Fever Hydrocodone Bitart/Acetaminophen 1 tab 03/11/23 18:41 03/12/23 12:00 Hydrocodone/Acetaminophen (*Crx) 5-325 Mg Tablet PO 1 tab Q4H PRN Administration Pain Rated 4-6 Enoxaparin Sodium 40 mg 03/12/23 09:00 03/12/23 08:08 Enoxaparin 40 Mg/0.4 Ml Syringe SUB-Q 40 mg DAILY CHEMA Administration Cefazolin Sodium 1 gm in 50 mls @ 100 mls/hr 03/12/23 02:00 03/12/23 08:40 Ancef 1 Gm/Ns 50 Ml IVPB Infused Q8H CHEMA Infusion Vancomycin HCl 1,500 mg in 500 mls @ 250 mls/hr 03/12/23 09:00 03/12/23 11:00 Vancomycin 1,500 Mg/Ns 500 Ml IVPB Infuse
[2023-03-12 14:26] VITALS: BP 122/76; PULSE 65; RESP 16; TEMP 36.2; O2SAT 99
[2023-03-12 21:57] VITALS: BP 151/82; PULSE 70; RESP 20; TEMP 36.3; O2SAT 98
[2023-03-13] MEDS: HYDROcodone/acetaminophen (*CRX) 5-325 MG TABLET 1 TAB PO ×4 (01:33→20:54)
[2023-03-13] MEDS: ceFAZolin 1 GM/NS 50 ML 1 GM/50 ML BAG IVPB ×3 (01:33→16:40)
[2023-03-13 06:00] VITALS: BP 150/91; PULSE 64; RESP 21; TEMP 36.2; O2SAT 100
[2023-03-13 08:41] LABS: Estimated CRCL calculation 127 ml/min; Estimated Glomerular Filt Rate > 60
[2023-03-13 09:13] LABS: Vancomycin Trough 6.4 ug/mL (10.0-20.0)
[2023-03-13] MEDS: ENOXAPARIN 40 MG/0.4 ML SYRINGE SUB-Q (09:24)
[2023-03-13] MEDS: VANCOMYCIN 1,750 MG/NS 500 ML 1,750 MG/500 ML BAG 250 MG IVPB ×2 (10:26→17:15)
--- NOTE | 2023-03-13 10:33 | PM.IMPN ---
Progress Note: A&P Assessment and Plan (1) Cellulitis of right leg: Code(s): L03.115 - Cellulitis of right lower limb Status: Acute Assessment and Plan: Improving, will continue current treatment monitor closely. (2) Hypokalemia: Code(s): E87.6 - Hypokalemia Status: Acute Assessment and Plan: Resolved (3) Dehydration: Code(s): E86.0 - Dehydration Status: Acute Assessment and Plan: Better and improving Plan Continue current treatment, monitor closely. Subjective Date/time seen: 03/13/23 10:33 Interval history: Patient was seen during morning rounds today. Patient pain is under control. No new overnight complaints. No shortness of breath or chest pain. No abdominal pain, nausea, no vomiting. Mood stable Review of Systems Review of Systems: Twelve systems were reviewed and are negative except for as per HPI. Exam Narrative: General: Mildly ill-appearing female in the semi-Russell position in bed in no distress. Weight: 108 kg. BMI: 38.4. HEENT: PERRL, EOMI. Sclera anicteric. Tacky mucous membranes. Neck: Supple. Respiratory: Lungs are clear to auscultation bilaterally. Cardiovascular: Regular rate and rhythm with S1-S2. Gastrointestinal: Abdomen is soft, nontender, and nondistended with positive bowel sounds. Skin: Warm and dry. There are several scattered, scabbed areas on the dorsal aspect of the distal right forefoot with surrounding erythema, edema, and warmth. The edema and warmth extend up to the knee with lymphangitic streaking just above the knee on the medial thigh. There is a separate, raised erythematous plaque on the right anterior eden. There is a small scabbed wound on the lateral aspect of the left 5th toe as well. Extremities: No cyanosis or clubbing. Right lower extremity is edematous and is likely reactive from underlying infection. Radial and pedal pulses intact. Except as noted in skin exam Neurological: Alert. Cranial nerves 2-12 are grossly intact. No gross focal deficits to casual conversation. Psychiatric: Pleasant and cooperative with normal mood and affect. Judgment and insight intact. Objective Data Vital Signs Vital Signs: Vital Signs - 24 hr 03/12/23 14:26 03/12/23 20:00 03/12/23 21:57 Temperature 36.2 C L 36.3 C L Pulse Rate 65 70 Respiratory Rate 16 20 Blood Pressure 122/76 151/82 H Pulse Oximetry 99 98 Oxygen Delivery Room Air 03/13/23 06:00 03/13/23 08:00 Temperature 36.2 C L Pulse Rate 64 Respiratory Rate 21 H Blood Pressure 150/91 H Pulse Oximetry 100 Oxygen Delivery Room Air Intake/Output Intake/Output: Intake & Output 03/10/23 03/11/23 03/12/23 03/13/23 23:59 23:59 23:59 23:59 Intake Total 50 3730 1110 Output Total 1500 Balance 50 2230 1110 Meds/Results Medications: Active Medications Generic Name Dose Route Start Last Admin Trade Name Freq PRN Reason Stop Dose Admin Acetaminophen 650 mg 03/11/23 18:41 Acetaminophen 325 Mg Tablet PO Q4H PRN Mild Pain (1-3) or Fever Hydrocodone Bitart/Acetaminophen 1 tab 03/11/23 18:41 03/13/23 08:46 Hydrocodone/Acetaminophen (*Crx) 5-325 Mg Tablet PO 1 tab Q4H PRN Administration Pain Rated 4-6 Enoxaparin Sodium 40 mg 03/12/23 09:00 03/13/23 09:24 Enoxaparin 40 Mg/0.4 Ml Syringe SUB-Q 40 mg DAILY CHEMA Administration Cefazolin Sodium 1 gm in 50 mls @ 100 mls/hr 03/12/23 02:00 03/13/23 09:23 Ancef 1 Gm/Ns 50 Ml IVPB 100 mls/hr Q8H CHEMA Administration Vancomycin HCl 1,750 mg in 500 mls @ 250 mls/hr 03/13/23 10:00 03/13/23 10:26 Vancomycin 1,750 Mg/Ns 500 Ml IVPB 250 mls/hr Q8H CHEMA Administration Morphine Sulfate 2 mg 03/11/23 21:51 03/12/23 09:54 Morphine Sulfate (*Crx) 4 Mg/Ml Inj IV PUSH 2 mg Q2H PRN Administration Pain Rated 7-10 Ondansetron HCl 4 mg 03/11/23 18:41 Ondansetron Inj 4 Mg/2 Ml Vial IV PUSH Q4H PRN N
[2023-03-13 14:00] VITALS: BP 119/95; PULSE 67; RESP 18; TEMP 36.8; O2SAT 99
[2023-03-13] MEDS: ONDANSETRON INJ 4 MG/2 ML VIAL IV PUSH (16:45)
[2023-03-13 22:19] VITALS: BP 154/91; PULSE 64; RESP 18; TEMP 36.4; O2SAT 96
[2023-03-14] MEDS: ceFAZolin 1 GM/NS 50 ML 1 GM/50 ML BAG IVPB ×3 (00:48→17:04)
[2023-03-14 06:00] VITALS: BP 140/85; PULSE 65; RESP 20; TEMP 36.4; O2SAT 99
[2023-03-14] MEDS: HYDROcodone/acetaminophen (*CRX) 5-325 MG TABLET 1 TAB PO (06:00)
[2023-03-14] MEDS: VANCOMYCIN 1,750 MG/NS 500 ML 1,750 MG/500 ML BAG 250 MG IVPB ×2 (08:34→14:31)
[2023-03-14] MEDS: ENOXAPARIN 40 MG/0.4 ML SYRINGE SUB-Q (08:38)
[2023-03-14] MEDS: ACETAMINOPHEN 325 MG TABLET 650 MG PO ×2 (08:40→14:33)
[2023-03-14 09:23] LABS: Alanine Aminotransferase 151 U/L (6-35); Albumin Level 4.4 g/dL (3.5-5.1); Alkaline Phosphatase 142 U/L (38-126); Anion Gap 12 mmol/L (8-16); Aspartate Amino Transferase 101 U/L (14-36); Bilirubin,Total 1.3 mg/dL (0.2-1.3); Blood Urea Nitrogen 4 mg/dL (7-17); Calcium 9.5 mg/dL (8.4-10.2); Carbon Dioxide 29 mmol/L (22-30); Chloride 100 mmol/L (98-107); Estimated CRCL calculation 128 ml/min; Estimated Glomerular Filt Rate > 60; Glucose 105 mg/dL (65-110); Potassium 3.6 mmol/L (3.4-5.0); Sodium 141 mmol/L (137-145)
--- NOTE | 2023-03-14 09:31 | PM.IMPN ---
Progress Note: A&P Assessment and Plan (1) Cellulitis of right leg: Code(s): L03.115 - Cellulitis of right lower limb Status: Acute Assessment and Plan: Improving, will continue current treatment monitor closely. Is stays okay will switch to p.o. antibiotics in the morning and discharge home (2) Hypokalemia: Code(s): E87.6 - Hypokalemia Status: Acute Assessment and Plan: Resolved (3) Dehydration: Code(s): E86.0 - Dehydration Status: Acute Assessment and Plan: Better and improving Plan Continue current treatment, monitor closely. Subjective Date/time seen: 03/14/23 09:31 Interval history: Patient was seen during morning rounds today. Patient pain is under control. No new overnight complaints. No shortness of breath or chest pain. No abdominal pain, nausea, no vomiting. Mood stable Review of Systems Review of Systems: Twelve systems were reviewed and are negative except for as per HPI. Exam Narrative: General: Mildly ill-appearing female in the semi-Russell position in bed in no distress. Weight: 108 kg. BMI: 38.4. HEENT: PERRL, EOMI. Sclera anicteric. Tacky mucous membranes. Neck: Supple. Respiratory: Lungs are clear to auscultation bilaterally. Cardiovascular: Regular rate and rhythm with S1-S2. Gastrointestinal: Abdomen is soft, nontender, and nondistended with positive bowel sounds. Skin: Warm and dry. There are several scattered, scabbed areas on the dorsal aspect of the distal right forefoot with surrounding erythema, edema, and warmth. The edema and warmth extend up to the knee with lymphangitic streaking just above the knee on the medial thigh. There is a separate, raised erythematous plaque on the right anterior deen. There is a small scabbed wound on the lateral aspect of the left 5th toe as well. Extremities: No cyanosis or clubbing. Right lower extremity is edematous and is likely reactive from underlying infection. Radial and pedal pulses intact. Except as noted in skin exam Neurological: Alert. Cranial nerves 2-12 are grossly intact. No gross focal deficits to casual conversation. Psychiatric: Pleasant and cooperative with normal mood and affect. Judgment and insight intact. Objective Data Vital Signs Vital Signs: Vital Signs - 24 hr 03/13/23 14:00 03/13/23 20:00 03/13/23 22:19 Temperature 36.8 C 36.4 C Pulse Rate 67 64 Respiratory Rate 18 18 Blood Pressure 119/95 H 154/91 H Pulse Oximetry 99 96 Oxygen Delivery Room Air 03/14/23 06:00 Temperature 36.4 C Pulse Rate 65 Respiratory Rate 20 Blood Pressure 140/85 Pulse Oximetry 99 Oxygen Delivery Intake/Output Intake/Output: Intake & Output 03/11/23 03/12/23 03/13/23 03/14/23 23:59 23:59 23:59 23:59 Intake Total 50 3730 2690 1000 Output Total 1500 900 Balance 50 2230 2690 100 Meds/Results Medications: Active Medications Generic Name Dose Route Start Last Admin Trade Name Freq PRN Reason Stop Dose Admin Acetaminophen 650 mg 03/11/23 18:41 03/14/23 08:40 Acetaminophen 325 Mg Tablet PO 650 mg Q4H PRN Administration Mild Pain (1-3) or Fever Hydrocodone Bitart/Acetaminophen 1 tab 03/11/23 18:41 03/14/23 06:00 Hydrocodone/Acetaminophen (*Crx) 5-325 Mg Tablet PO 1 tab Q4H PRN Administration Pain Rated 4-6 Docusate Sodium 100 mg 03/13/23 21:01 Docusate Sodium 100 Mg Capsule PO Q12H PRN Constipation Enoxaparin Sodium 40 mg 03/12/23 09:00 03/14/23 08:38 Enoxaparin 40 Mg/0.4 Ml Syringe SUB-Q 40 mg DAILY CHEMA Administration Cefazolin Sodium 1 gm in 50 mls @ 100 mls/hr 03/12/23 02:00 03/14/23 00:48 Ancef 1 Gm/Ns 50 Ml IVPB 100 mls/hr Q8H CHEMA Administration Vancomycin HCl 1,750 mg in 500 mls @ 250 mls/hr 03/14/23 07:00 03/14/23 08:34 Vancomycin 1,750 Mg/Ns 500 Ml IVPB 250 mls/hr Q8H CHEMA Administration Morphine Sulfate 2 mg 03/11/23 21:51 03/12/23 09:54 Mo
[2023-03-14] MEDS: DOCUSATE SODIUM 100 MG CAPSULE PO (12:10)
[2023-03-14 15:18] VITALS: BP 156/93; PULSE 76; RESP 18; TEMP 37.1; O2SAT 98
[2023-03-14 21:13] VITALS: BP 151/76; PULSE 70; RESP 18; TEMP 37.2; O2SAT 97
[2023-03-14 22:38] LABS: Vancomycin Trough 14.5 ug/mL (10.0-20.0)
[2023-03-15] MEDS: VANCOMYCIN 1,750 MG/NS 500 ML 1,750 MG/500 ML BAG 250 MG IVPB (00:29)
[2023-03-15] MEDS: ceFAZolin 1 GM/NS 50 ML 1 GM/50 ML BAG IVPB ×2 (00:30→08:37)
[2023-03-15 04:07] VITALS: BP 141/66; PULSE 61; RESP 18; TEMP 36.6; O2SAT 97
[2023-03-15] MEDS: ACETAMINOPHEN 325 MG TABLET 650 MG PO (08:39)
[2023-03-15] MEDS: ENOXAPARIN 40 MG/0.4 ML SYRINGE SUB-Q (08:39)
--- NOTE | 2023-03-15 09:00 | PC.NURSE ---
Promotions Assistant spoke with Ed in pharmacy regarding vancomycin end time of 0500. Promotions Assistant instructed to send it back to pharmacy for retiming
[2023-03-15] MEDS: VANCOMYCIN 1,500 MG/NS 500 ML BAG 250 MG IVPB (11:35)
[2023-03-15] MEDS: DOCUSATE SODIUM 100 MG CAPSULE PO (11:35)
--- NOTE | 2023-03-15 12:56 | PM.DS ---
DS: Admitting Diagnosis Discharge Date 03/15/2023 Admitting Diagnosis Right leg cellulitis DS: Discharge Diagnosis Discharge Diagnosis (1) Cellulitis of right leg: Code(s): L03.115 - Cellulitis of right lower limb Status: Acute (2) Hypokalemia: Code(s): E87.6 - Hypokalemia Status: Acute (3) Dehydration: Code(s): E86.0 - Dehydration Status: Acute DS: Summary Hospital Course Hospital Course: This is a very pleasant 47-year-old female who presented to the emergency department via private vehicle from home for evaluation of a worsening right leg infection. The patient provides the following history. About 5 days ago she got home from work and notice a few open areas on the top of her right foot draining serous fluid. She works long hours and is on her feet a majority of the time and it is not necessarily unusual for her to have discomfort with her shoes as they seem to rub on top of the foot. That night there was some redness developing over the foot and she developed fever, sweats, reports having several episodes of emesis. She was seen at an urgent care on Saturday where she was diagnosed with cellulitis and she was prescribed cephalexin. She had the prescription filled on Saturday morning and has been taking it as directed but unfortunately it is getting worse with spreading erythema, edema, and warmth. Overall she does not feel well with generalized headache and a poor appetite. On exam she has a small wound on the lateral aspect of the left 5th toe which does not look infected however she thinks she may have used that toe to the scratch the top of the right foot when her symptoms 1st started. With further questioning she endorses frequent irritation from her shoes and socks. She has not used any new lotions or soaps. She has not had issues with contact dermatitis previously. No known history of MRSA. In the ED: She was afebrile on arrival with stable vital signs. Labs were significant for a WBC count of 9.3, potassium 3.1, chloride 97, lactic acid 1.8, glucose 125, AST 87, ALT 128. She was given 1 g of cefazolin and 1500 mg of vancomycin and she is being admitted in this setting for further IV antibiotics. She was treated with cefazolin and vancomycin with significant improvement in her cellulitis. All the cultures were negative. She will be switched to Bactrim for 7 more days at discharge. Follow-up with PCP in 1 week Time Spent with Patient Time attestation: Total time spent providing and/or coordinating discharge services: 35 minutes Exam Narrative: General: Mildly ill-appearing female in the semi-Russell position in bed in no distress. HEENT: PERRL, EOMI. Sclera anicteric. Tacky mucous membranes. Neck: Supple. Respiratory: Lungs are clear to auscultation bilaterally. Cardiovascular: Regular rate and rhythm with S1-S2. Gastrointestinal: Abdomen is soft, nontender, and nondistended with positive bowel sounds. Skin: Warm and dry. There are several scattered, scabbed areas on the dorsal aspect of the distal right forefoot with surrounding erythema, edema, and warmth. The edema and warmth extend up to the knee with lymphangitic streaking just above the knee on the medial thigh. There is a separate, raised erythematous plaque on the right anterior eden. There is a small scabbed wound on the lateral aspect of the left 5th toe as well. Extremities: No cyanosis or clubbing. Right lower extremity is mildly edematous. Right eden has his erythematous patch which is improving. Right forefoot dorsum has eczematous patch Neurological: Alert. Cranial nerves 2-12 are grossly intact. No gross focal deficits to casual conversation. Psychiatric: Pleasant and cooperative with normal mood and affect. Judgment and insight intact. DS: Data Data Completed and Pending Labs on day of discharge: Labs from last 24 hours 03/14/23 21:40 Vancomycin Trough 14.5 Discharge Plan Discharge Attending kinsey
== END 2023-03-15 15:30 | disposition home or self-care (01) | DRG 603 ==
LOC: ANHED 19:18 → ANH3MED 21:50
PROVIDERS: Internal Medicine; Physician Assistant; Admitting Provider Family Medicine; Emergency Provider Emergency Medicine; PCP Registered Nurse; Visit Provider Internal Medicine
DX: L03.115 Cellulitis of right lower limb (principal); E87.6 Hypokalemia; E86.0 Dehydration; I10 Essential (primary) hypertension; F12.90 Cannabis use, unspecified, uncomplicated; Z87.891 Personal history of nicotine dependence
CPT/HCPCS: 36415; 80053; 80202; 82565; 83605; 83735; 85025; 85610; 85730; 86140; 87081; 96365; 96375; 99285; A9270; G0378; J0690; J1650; J2270; J2405; J3370; J7120

== ENCOUNTER 2023-04-17 16:04 | Emergency (ER) | payer OTHER, SELFPAY ==
[2023-04-17 16:17] VITALS: BP 148/85; PULSE 65; RESP 16; TEMP 36.5; O2SAT 99
--- NOTE | 2023-04-17 16:22 | ED.GENADULT ---
HPI - General Adult General Chief complaint: Upper Respiratory Infection Stated complaint: sore throat Source: patient, RN notes reviewed and old records reviewed Mode of arrival: ambulatory Limitations: no limitations History of Present Illness HPI narrative: 48-year-old female presents to [facility] with complaint of sore throat, headache this started yesterday. Patient states did have right ear pain that has resolved on its own. Patient has not taken anything for symptoms. Patient denies cough, congestion, shortness of breath chest pain, dizziness, weakness. MD complaint: sore throat Onset (ago): day(s) (1) Related Data Home Medications Medication Instructions Recorded Confirmed amlodipine 5 mg tablet 5 mg PO DAILY 04/17/23 04/17/23 Allergies Allergy/AdvReac Type Severity Reaction Status Date / Time No Known Allergies Allergy Verified 04/17/23 16:15 Review of Systems Constitutional: Constitutional: Reports no additional constitutional complaints, Denies body ache(s), Denies chills, Denies fatigue, Denies fever(s) and Reports headache(s) Eyes: Eyes: Reports no additional eye complaints and Denies blurry vision ENT: Reports system reviewed and no additional complaints, except as documented, Denies vertigo, Denies dizziness, Denies ear discharge, Reports otalgia, Denies facial pain, Denies headache(s), Denies nasal congestion, Denies nasal discharge, Denies sinus pain, Denies sinus pressure and Reports sore throat Cardiovascular: Cardiovascular: Reports no additional cardiovascular complaints, Denies chest pain, Denies chest pain at rest, Denies rapid heart rate and Denies dyspnea Respiratory: Respiratory: Reports no additional respiratory complaints, Denies chest congestion, Denies cough, Denies pain on inspiration, Denies pain with cough and Denies dyspnea Gastrointestinal: Gastrointestinal: Denies abdominal pain, Denies diarrhea, Denies nausea and Denies vomiting Integumentary/Breasts: Skin/Breast: Denies rash Neurologic: Reports system reviewed and no additional complaints, except as documented, Denies vertigo, Denies dizziness and Denies headache(s) Endocrine: Endocrine: Denies fatigue PMFSH Past Medical History Medical History Chronic pain syndrome Hypertension Menometrorrhagia Polysubstance use disorder Surgical History Surgical History History of robot-assisted laparoscopic hysterectomy (12/21/21) With bilateral salpingectomy. History of tonsillectomy Family History Family History Daughter No problems noted. Mother Breast cancer Grandparent Diabetes mellitus Social History Social History Social History: Surrogate medical decision maker: Katrina Smalls, . Code status: Full code. Smoking packs per day: 0.75 Smoking cigarettes per day: 15.0 Years smoked: 20 Smoking pack-years: 15.00 Smoking status: Former smoker Tobacco type: cigarettes Smoking end date: 03/18/14 Alcohol intake: current Drinks per week: 6 Substance use: current Substance use type: marijuana Other substance usage details: 2 x week Do You Feel Safe in your Home?: Yes Lack of Transportation: No Lack of Food: Never True Current Housing: I Have Housing Concerned About Future Housing: No Difficulty Paying Gas/Electric Bills: No Difficulty Paying for Meds: No Currently Unemployed: No Education: Bachelor's Degree Difficulty w/ Childcare or Family Care: No Living arrangements: with family Additional living arrangements comments: . Lives with in [place]. She has 2 adult children. 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 Gender identity (if verbalized by th
== END 2023-04-17 16:51 | disposition home or self-care (01) ==
PROVIDERS: Emergency Provider Registered Nurse; PCP Registered Nurse
DX: J02.9 Acute pharyngitis, unspecified (principal); Z87.891 Personal history of nicotine dependence; F12.90 Cannabis use, unspecified, uncomplicated; I10 Essential (primary) hypertension
CPT/HCPCS: 87081; 87880; 99213; G0463

== ENCOUNTER 2023-04-27 08:14 | Emergency (ER) | payer OTHER, SELFPAY ==
[2023-04-27 08:22] VITALS: BP 158/89; PULSE 81; RESP 18; TEMP 36.7; O2SAT 97
--- NOTE | 2023-04-27 08:48 | ED.SKABFB ---
HPI - Skin/Abscess/Foreign Bdy General Chief complaint: Skin/Abscess/Foreign Body Stated complaint: foot infection Time Seen by Provider: 04/27/23 08:17 Source: patient Mode of arrival: ambulatory Limitations: no limitations History of Present Illness HPI narrative: 48 years old white female came to the emergency room with skin rash at the right foot dorsally surrounded by erythema started 2-3 days ago. Patient reported having similar symptoms in the past required IV antibiotic and hospitalization. She denies any fever, chills, vomiting or history of diabetes. Related Data Home Medications Medication Instructions Recorded Confirmed amlodipine 5 mg tablet 5 mg PO DAILY 04/17/23 04/17/23 Allergies Allergy/AdvReac Type Severity Reaction Status Date / Time No Known Allergies Allergy Verified 04/27/23 08:30 Review of Systems Review of Systems: All systems reviewed & are unremarkable except as noted in HPI and below PMFSH Past Medical History Medical History Chronic pain syndrome Hypertension Menometrorrhagia Polysubstance use disorder Surgical History Surgical History History of robot-assisted laparoscopic hysterectomy (12/21/21) With bilateral salpingectomy. History of tonsillectomy Family History Family History Daughter No problems noted. Mother Breast cancer Grandparent Diabetes mellitus Social History Social History Social History: Surrogate medical decision maker: Katrina Smalls, . Code status: Full code. Smoking packs per day: 0.75 Smoking cigarettes per day: 15.0 Years smoked: 20 Smoking pack-years: 15.00 Smoking status: Former smoker Tobacco type: cigarettes Smoking end date: 03/18/14 Alcohol intake: current Drinks per week: 6 Substance use: current Substance use type: marijuana Other substance usage details: 2 x week Do You Feel Safe in your Home?: Yes Lack of Transportation: No Lack of Food: Never True Current Housing: I Have Housing Concerned About Future Housing: No Difficulty Paying Gas/Electric Bills: No Difficulty Paying for Meds: No Currently Unemployed: No Education: Bachelor's Degree Difficulty w/ Childcare or Family Care: No Living arrangements: with family Additional living arrangements comments: . Lives with in [place]. She has 2 adult children. 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 Gender identity (if verbalized by the patient): Female Sexual Orientation (if Verbalized by the Patient): Lesbian, Rider, or Homosexual Spiritual care concerns: No Exam Narrative: General appearance: Well-developed, well-nourished Skin: Right foot exam showed eczematous changes with erythema and superficial yellow crusts 7 x 8 cm size. No discharge. Head: Normocephalic, nontraumatic Eyes: Clear conjunctiva ENT: Oropharynx normal, ears normal, nose normal Neck: Supple, nontender Chest and respiratory: Airway patent, no respiratory distress, no accessory muscle use Heart: Regular rate/rhythm Vascular: Normal peripheral pulses, normal capillary refill. Musculoskeletal: Normal range of motion, nontender back Neurologic: Alert and oriented ?3, WEB APPLICATION DEVELOPER is normal as tested, no gross motor deficit Course Vital Signs Vital signs: Vital Signs Temperature 36.7 C 04/27/23 08:22 Pulse Rate 81 04/27/23 08:22 Respiratory Rate 18 04/27/23 08:22
[2023-04-27 09:09] LABS: Basophils Absolute Auto 0.1 K/mm3 (0.0-0.1); Basophils Percent Auto 0.4 % (0.2-1.2); Hematocrit 38.4 % (37.0-47.0); Hemoglobin 12.8 g/dL (12.0-15.0); Immature Granulocyte Absolute 0.07 K/mm3 (0.00-0.031); Immature Granulocyte Percent A 0.5 % (0-0.5); Lymphocytes Absolute Auto 0.72 K/mm3 (0.9-3.2); Lymphocytes Percent Auto 5.2 % (18.3-44.2); Mean Corpuscular HGB Conc 33.3 g/dl (32-36); Mean Corpuscular Hemoglobin 30.8 pg (26-34); Mean Corpuscular Volume 92.5 fl (80-100); Mean Platelet Volume 9.8 fl (7.4-10.4); Monocytes Absolute Auto 0.3 K/mm3 (0.1-0.6); Monocytes Percent Auto 2.3 % (2.6-8.5); Neutrophils Absolute Auto 12.6 K/mm3 (1.3-6.7); Neutrophils Percent Auto 91.6 % (45.5-73.1); Platelet Count Result 228 k/mm3 (150-375); Red Blood Count 4.15 M/mm3 (4.2-5.4); Red Cell Distribution Width 12.7 % (11.5-14.5); White Blood Count 13.8 K/mm3 (4.5-10.0)
[2023-04-27] MEDS: VANCOMYCIN 1,500 MG/NS 500 ML 1,500 MG/500 ML BAG 333.33 MG IVPB (09:22)
[2023-04-27 09:23] LABS: Anion Gap 8 mmol/L (8-16); Blood Urea Nitrogen 6 mg/dL (7-17); Calcium 9.1 mg/dL (8.4-10.2); Carbon Dioxide 26 mmol/L (22-30); Chloride 101 mmol/L (98-107); Estimated CRCL calculation 103 ml/min; Estimated Glomerular Filt Rate > 60; Glucose 134 mg/dL (65-110); Lactic Acid Reflex 1.9 mmol/L (0.7-2.0); Potassium 3.2 mmol/L (3.4-5.0); Sodium 135 mmol/L (137-145)
[2023-04-27 10:28] VITALS: BP 158/89; PULSE 86; RESP 18; O2SAT 100
[2023-04-27 11:00] VITALS: BP 144/81; PULSE 78; RESP 20; O2SAT 98
[2023-04-27 12:00] VITALS: BP 131/79; PULSE 73; RESP 19; O2SAT 97
== END 2023-04-27 12:33 | disposition home or self-care (01) ==
PROVIDERS: Emergency Provider Emergency Medicine; PCP Registered Nurse
DX: L08.9 Local infection of the skin and subcutaneous tissue, unspecified (principal); B96.89 Other specified bacterial agents as the cause of diseases classified elsewhere; E87.6 Hypokalemia; I10 Essential (primary) hypertension; Z87.891 Personal history of nicotine dependence
CPT/HCPCS: 36415; 80048; 83605; 85025; 96365; 96366; 99284; J3370

== ENCOUNTER 2023-10-17 08:03 | Emergency (ER) | payer OTHER, SELFPAY ==
--- NOTE | 2023-10-17 08:08 | ED.URI ---
HPI - URI/Sore Throat General Chief Complaint: Upper Respiratory Infection Stated Complaint: sore throat Source: patient, RN notes reviewed and old records reviewed Mode of arrival: ambulatory Limitations: no limitations History of Present Illness HPI Narrative: Patient presents to [facility] with complaints of sore throat and headache that began last night. She reports that COVID has been being passed around at work. She reports that she took a COVID test at home this morning, it was negative. Her blood pressure was discussed with her, she reports that she took herself off of amlodipine 3-4 months ago because she did not feel as though she needed it. She has not been taking anything for her sore throat or headache. She does report some associated nasal drainage. She is unsure of fever status. She has had some body aches. She voices no other concerns or complaints today Related Data Allergies Allergy/AdvReac Type Severity Reaction Status Date / Time No Known Allergies Allergy Verified 10/17/23 08:07 Review of Systems Review of Systems: All systems reviewed & are unremarkable except as noted in HPI and below Constitutional: Constitutional: Reports as per HPI and Reports no additional constitutional complaints ENT: Reports system reviewed and no additional complaints, except as documented, Reports as per HPI, Reports headache(s), Reports hoarseness, Reports nasal discharge and Reports sore throat Cardiovascular: Cardiovascular: Reports as per HPI, Reports no additional cardiovascular complaints, Denies chest pain, Denies chest pain at rest and Denies dyspnea Respiratory: Respiratory: Reports no additional respiratory complaints Gastrointestinal: Gastrointestinal: Reports no additional gastrointestinal complaints PMFSH Past Medical History Medical History Chronic pain syndrome Hypertension Menometrorrhagia Polysubstance use disorder Surgical History Surgical History History of robot-assisted laparoscopic hysterectomy (12/21/21) With bilateral salpingectomy. History of tonsillectomy Family History Family History Daughter No problems noted. Mother Breast cancer Grandparent Diabetes mellitus Social History Social History Social History: Surrogate medical decision maker: Katrina Smalls, . Code status: Full code. Smoking packs per day: 0.75 Smoking cigarettes per day: 15.0 Years smoked: 20 Smoking pack-years: 15.00 Smoking status: Former smoker Tobacco type: cigarettes Smoking end date: 03/18/14 Alcohol intake: current Drinks per week: 6 Substance use: current Substance use type: marijuana Other substance usage details: 2 x week Do You Feel Safe in your Home?: Yes Lack of Transportation: No Lack of Food: Never True Current Housing: I Have Housing Concerned About Future Housing: No Difficulty Paying Gas/Electric Bills: No Difficulty Paying for Meds: No Currently Unemployed: No Education: Bachelor's Degree Difficulty w/ Childcare or Family Care: No Living arrangements: with family Additional living arrangements comments: . Lives with in [place]. She has 2 adult children. 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 Gender identity (if verbalized by the patient): Female Sexual Orientation (if Verbalized by the Patient): Lesbian, Rider, or Homosexual Spiritual care concerns: No Comments At the time of my signature, I reviewed and agree with the nursing past medical, surgical, social, and family history. There is no relevant family history pertinent to the patient complaint. Exam Const: General: cooperative, no acute distress, alert and a
[2023-10-17 08:15] VITALS: BP 172/106; PULSE 70; RESP 16; TEMP 36.9; O2SAT 99
[2023-10-17 08:39] LABS: EDSTREPNEGPOS1 Presumptive Negative
== END 2023-10-17 08:43 | disposition home or self-care (01) ==
PROVIDERS: Emergency Provider Nurse Practitioner Family
DX: J06.9 Acute upper respiratory infection, unspecified (principal); Z87.891 Personal history of nicotine dependence; F12.90 Cannabis use, unspecified, uncomplicated; I10 Essential (primary) hypertension
CPT/HCPCS: 87081; 87880; 99213; G0463

== ENCOUNTER 2023-12-11 07:46 | Outpatient (CLI) | payer OTHER, SELFPAY ==
--- NOTE | ~2023-12-11 | US_ITS ---
Limited Abdominal Sonogram: Real-time sonographic imaging of the right upper quadrant was performed. Clinical History: Right upper quadrant pain Findings: The liver appears echogenic, with no evidence of mass lesion or bile duct dilatation. Main portal vein demonstrates normal direction of flow. The gallbladder is well distended, and appears no rmal with no evidence of gallstone or wall thickening. The common bile duct measures 3 mm. The visua lized pancreas, aorta, and IVC are unremarkable. Right kidney measures 11.0 cm in length, without hyd ronephrosis or renal stone. Impression: Diffuse fatty infiltration of the liver. Reviewed, dictated and finalized at location M. Impression: Diffuse fatty infiltration of the liver.
== END 2023-12-11 07:47 | disposition home or self-care (01) ==
LOC: MICIMG 07:46
PROVIDERS: PCP Nurse Practitioner Family; Visit Provider Nurse Practitioner Family
DX: R10.11 Right upper quadrant pain (principal); K76.0 Fatty (change of) liver, not elsewhere classified
CPT/HCPCS: 76705

== ENCOUNTER 2024-01-08 13:58 | Outpatient (CLI) | payer OTHER, SELFPAY ==
--- NOTE | ~2024-01-08 | MM_ITS ---
EXAMINATION: MM screening swathi BI w lisandro HISTORY: Screening TECHNIQUE: Craniocaudal and mediolateral oblique 3-D tomosynthesis images were obtained and synthetic 2-D images were generated. CAD analysis was submitted and interpreted. COMPARISON: Comparison to multiple prior studies sequentially, with oldest reviewed study dated 07/13. BREAST PARENCHYMAL COMPOSITION: Not dense: There are scattered areas of fibroglandular density. FINDINGS: There is a mass in the upper outer quadrant of the right breast which is enlarged and incre ased density compared with prior studies. The left breast is stable without evidence for malignancy. IMPRESSION: 1. Enlarging right breast mass upper outer quadrant, middle third. 2. Additional mammographic views and possible breast ultrasound are recommended. BI-RADS Category 0: Incomplete: Needs additional imaging evaluation. Reviewed, dictated and finalized at location B. IMPRESSION: 1. Enlarging right breast mass upper outer quadrant, middle third. 2. Additional mammographic views and possible breast ultrasound are recommended . BI-RADS Category 0: Incomplete: Needs additional imaging evaluation.
== END 2024-01-08 13:59 | disposition home or self-care (01) ==
LOC: MICIMG 13:59
PROVIDERS: PCP Nurse Practitioner Family; Visit Provider Nurse Practitioner Family
DX: Z12.31 Encounter for screening mammogram for malignant neoplasm of breast (principal); R92.8 Other abnormal and inconclusive findings on diagnostic imaging of breast
CPT/HCPCS: 77063; 77067

== ENCOUNTER 2024-02-26 08:48 | Outpatient (CLI) | payer OTHER, SELFPAY ==
--- NOTE | ~2024-02-26 | MMUS_ITS ---
EXAMINATION: MM diagnostic swathi RT w lisandro, US breast RT limited HISTORY: Right breast mass with altered morphology TECHNIQUE: Additional 3-D tomosynthesis images of the right breast were performed and synthetic 2-D i mages were generated. CAD analysis was submitted and interpreted. High resolution Limited right breas t ultrasound was performed. COMPARISON: Comparison to multiple prior studies sequentially, with oldest reviewed study dated 07/13. BREAST PARENCHYMAL COMPOSITION: Not dense: There are scattered areas of fibroglandular density. FINDINGS: MAMMOGRAPHIC FINDINGS: There is a mass in the upper outer quadrant of the right breast, partially obscured by fibroglandular tissue. There are no suspicious calcifications or architectural distortion. ULTRASOUND: Limited right breast ultrasound: There is a slightly lobulated hypoechoic mass in the right breast at 11:00, 3 cm from the nipple victor m uring 1.4 x 1.4 x 0.9 cm. No internal vascularity or significant posterior features. This corresponds to the mammographic finding. IMPRESSION: 1. Gently lobulated 1.4 cm right breast mass at 11:00, 3 cm from the nipple. The morphology of this m asses slightly different than on prior studies and minimally enlarged. 2. Ultrasound-guided right breast biopsy recommended. BI-RADS category 4, suspicious findings. Reviewed, dictated and finalized at location B. BER IMPRESSION: 1. Gently lobulated 1.4 cm right breast mass at 11:00, 3 cm from the nipple. Th e morphology of this masses slightly different than on prior studies and minima lly enlarged. 2. Ultrasound-guided right breast biopsy recommended. BI-RADS category 4, suspicious findings.
== END 2024-02-26 08:49 | disposition home or self-care (01) ==
PROVIDERS: PCP Nurse Practitioner Family; Visit Provider Nurse Practitioner Family
DX: N63.10 Unspecified lump in the right breast, unspecified quadrant (principal); R92.8 Other abnormal and inconclusive findings on diagnostic imaging of breast
CPT/HCPCS: 76642; 77061; 77065; G0279

== ENCOUNTER 2024-03-19 07:58 | Outpatient (CLI) | payer OTHER, SELFPAY ==
--- NOTE | ~2024-03-19 | MMUS_ITS ---
EXAMINATION: 1. US breast biopsy RT w image 2. MM post biopsy diagnostic RT DATE: 03/19/2024 10:18 INDICATION: Right breast mass at 11:00, 3 cm from the nipple. TECHNIQUE: The procedure including the risks, benefits, and alternatives was discussed with the patie nt. Risks discussed included bleeding and infection. The patient understood the risks and agreed to p roceed. The skin of the right breast was prepped and draped in usual sterile fashion. Anesthetic was administered with 1% lidocaine at the skin and 1% lidocaine with epinephrine in the deeper tissue. A 10-gauge vacuum-assisted core biopsy needle was then used to obtain 4 core biopsy specimens under c ontinuous sonographic guidance. A Mammotome HydroMARK butterfly marker was placed under sonographic g uidance The entry site was cleaned and dressed. There were no immediate complications. A two-view mammogram was obtained to document marker placement. FINDINGS: Ultrasound images demonstrate the needle in a 1.4 cm mass in the right breast at 11:00. Breast composition: There are scattered areas of fibroglandular density. Mammogram: The marker is at the edge of a mass in the upper outer quadrant of the right breast. IMPRESSION: 1. Successful ultrasound-guided vacuum-assisted biopsy of a mass in the upper outer right breast with post procedure mammogram for marker placement. Reviewed, dictated and finalized at location A. R TRANSMISSION ENGINEER IMPRESSION: 1. Successful ultrasound-guided vacuum-assisted biopsy of a mass in the upper o uter right breast with post procedure mammogram for marker placement.
== END 2024-03-19 07:59 | disposition home or self-care (01) ==
PROVIDERS: PCP Nurse Practitioner Family; Visit Provider Nurse Practitioner Family
DX: N63.11 Unspecified lump in the right breast, upper outer quadrant (principal)
CPT/HCPCS: 19083; 77065; 88305; 88342; A4648

== ENCOUNTER 2024-12-18 07:54 | Outpatient (CLI) | payer OTHER, SELFPAY ==
--- NOTE | ~2024-12-18 | MM_ITS ---
EXAMINATION: MM screening [facility] BI w lisandro HISTORY: Screening TECHNIQUE: Craniocaudal and mediolateral oblique 3-D tomosynthesis images were obtained and synthetic 2-D images were generated. CAD analysis was submitted and interpreted. COMPARISON: Comparison to multiple prior studies sequentially, with oldest reviewed study dated 07/28/2015. BREAST PARENCHYMAL COMPOSITION: FINDINGS: Stable mass upper outer quadrant of the right breast with adjacent tissue marker, consistent with previously biopsy-proven benign mass. There is no evidence of suspicious mass, calcification, or architectural distortion to suggest malignancy in either breast. There has been no suspicious interval change. IMPRESSION: 1. No mammographic evidence of malignancy. 2. Recommend routine screening mammography in one year. BI-RADS Category 1: Negative Reviewed, dictated and finalized at location B.
== END 2024-12-18 07:55 | disposition home or self-care (01) ==
LOC: MICIMG 07:59
PROVIDERS: PCP Nurse Practitioner Family; Visit Provider Nurse Practitioner Family
DX: Z12.31 Encounter for screening mammogram for malignant neoplasm of breast (principal)
CPT/HCPCS: 77063; 77067

== ENCOUNTER 2025-02-04 08:09 | Emergency (ER) | payer OTHER, SELFPAY ==
[2025-02-04 08:19] VITALS: BP 183/97; PULSE 86; RESP 18; TEMP 37.3; O2SAT 98
[2025-02-04 08:29] LABS: EDSTREPNEGPOS1 Negative (Negative)
[2025-02-04 08:36] LABS: EDCOVIDSCREEN Negative (Negative); EDINFLUASCREEN Negative (Negative); EDINFLUBSCREEN Negative (Negative)
--- NOTE | 2025-02-04 08:46 | ED_ITS ---
HPI - URI/Sore Throat General Chief Complaint: Upper Respiratory Infection Stated Complaint: sore throat/flu symptoms Time Seen by Provider: 02/04/25 08:30 Source: patient and RN notes reviewed Mode of arrival: ambulatory Limitations: no limitations History of Present Illness HPI Narrative: 49-year-old female presents to the [facility] complaining of cough, sore throat, congestion, body aches, chills, sweats started approximately 2 days ago. Patient reports pain with swallowing. Patient denies any fevers, nausea vomiting, diarrhea, chest pain, difficulty breathing abdominal pain, or any other upper respiratory symptoms, or any other symptoms. Patient has not taken anything [id number] to help with symptoms. Patient has a history of hypertension. Patient's blood pressure is elevated today however she has not taken her amlodipine yet she says. Patient denies any dizziness, vision changes, headaches, or any other symptoms. Related Data Allergies Allergy/AdvReac Type Severity Reaction Status Date / Time No Known Allergies Allergy Verified 02/04/25 08:17 Review of Systems Review of Systems: CONSTITUTIONAL: Denies fever. Positive for chills, body aches, and sweats. EYES: Denies visual changes, redness, or discharge. ENT: Positive for, congestion, sore throat. Negative for rhinorrhea or otalgia. CARDIOVASCULAR: Denies chest pain, palpitations, dizziness, lightheadedness or edema. RESPIRATORY: Positive for cough. Negative for dyspnea, difficulty breathing. GASTROINTESTINAL: Denies abdominal pain, nausea, vomiting, or diarrhea. GENITOURINARY: Denies dysuria or hematuria. SKIN: Denies rash or itching. MUSCULOSKELETAL: Denies back pain, joint pain, or myalgia. NEUROLOGIC: Denies headache, numbness, loss of consciousness, or weakness. PSYCHIATRIC: Denies anxiety or depression. All other systems reviewed are negative, except as documented in HPI. [facility] Past Medical History Medical History Chronic pain syndrome Polysubstance use disorder Menometrorrhagia Hypertension Surgical History Surgical History History of robot-assisted laparoscopic hysterectomy (12/21/21) With bilateral salpingectomy. History of tonsillectomy Family History Family History Daughter No problems noted. Mother Breast cancer Grandparent Diabetes mellitus Sibling Breast cancer Social History Social History Social History: Surrogate medical decision maker: Katrina Smalls, . Code status: Full code. Smoking packs per day: 0.75 Smoking cigarettes per day: 15.0 Years smoked: 20 Smoking pack-years: 15.00 Smoking status: Former smoker Tobacco type: cigarettes Smoking end date: 03/18/14 Alcohol intake: current Drinks per week: 6 Substance use: current Substance use type: marijuana Other substance usage details: 2 x week Do You Feel Safe in your Home?: Yes Lack of Transportation: No Lack of Food: Never True Current Housing: I Have Housing Concerned About Future Housing: Decline to Answer Difficulty Paying Gas/Electric Bills: Decline to Answer Difficulty Paying for Meds: Decline to Answer Currently Unemployed: No Education: Bachelor's Degree Difficulty w/ Childcare or Family Care: No Living arrangements: with family Additional living arrangements comments: . Lives with in [place]. She has 2 adult children. 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 Gender identity (if verbalized by the patient): Female Sexual Orientation (if Verbalized by the Patient): Lesbian, Rider, or Homosexual Spiritual care concerns: No Comments At the time of my signature, I reviewed and agree with the nursing past medical, surgical, social, and family history. There is no relevant family history pertinent to the patient complaint. Exam Narrative: GENERAL: This is a well-nourished, well-developed adult, in no apparent distress. They are non ill-appearing, nontoxic appearing. HEAD: normocephalic, atraumatic. EYES: Sclera clear/white. Vision is grossly intact. Conjunctiva normal bilaterally. Extraocular movements intact. EARS: External ears normal, auditory canals clear and without drainage, TMs without erythema or perforation. Hearing grossly intact. NOSE: External nose normal with no obvious nasal discharge, nasal turbinates erythematous, no rhinorrhea. THROAT: Mucous membranes moist, posterior pharynx injected without exudate. No swelling. S/p tonsillectomy. Uvula is midline. Postnasal drip present. NECK: Neck supple, non-tender without lymphadenopathy, masses or thyromegaly. CARDIOVASCULAR: Regular rate and rhythm without murmurs, gallops, or rubs. RESPIRATORY: Clear to auscultation. Breath sounds equal bilaterally. No wheezes, rales, or rhonchi. SKIN: warm, Dry, intact with no suspicious lesions or rash, good texture and turgor. NEURO: awake, alert, and oriented to person, place and time. There were no obvious focal neurologic abnormalities. EXTREMITIES: No joint tenderness, effusion, or edema noted. BACK: Nontender without deformity. Course Course Emergency Course: Portions of this record may have been created with voice recognition software Level of Care: Express Care Visit Vital Signs Vital signs: Vital Signs Temperature 99.1 F 02/04/25 08:19 Pulse Rate 86 02/04/25 08:19 Respiratory Rate 18 02/04/25 08:19 Blood Pressure 183/97 H 02/04/25 08:19 Pulse Oximetry 98 02/04/25 08:19 Oxygen Delivery Room Air 02/04/25 08:19 Temperature 99.1 F 02/04/25 08:19 Pulse Rate 86 02/04/25 08:19 Respiratory Rate 18 02/04/25 08:19 Blood Pressure 183/97 H 02/04/25 08:19 Pulse Oximetry 98 02/04/25 08:19 Oxygen Delivery Room Air 02/04/25 08:19 MDM - URI/Sore Throat MDM Narrative Medical decision making narrative: Rapid COVID, flu, strep were negative. A throat culture is pending. Symptoms likely viral in etiology. Will give her 1 time dose of dexamethasone for the pharyngitis as patient reports her sore throat is quite painful. She rated a 6/10. Also send her home with benzonatate tablets. Advised patient to go home and take her amlodipine. Discussed physical exam findings. Advised supportive measures and signs/symptoms to go to the ER. Pt is appropriate for outpt treatment and f/u. Differential Diagnosis Differential diagnosis: Likely upper respiratory infection, sinusitis, viral infection and pharyngitis Lab Data Attestation: I reviewed the patient's lab results. Labs: Lab Results 02/04/25 02/04/25 Range/Units 08:26 08:34 POC Influenza A Ag Negative (Negative) POC Influenza B Ag Negative (Negative) POC SARS CoV-2 Ag Negative (Negative) POC Grp A Strep Screen Negative (Negative) Discharge Plan Discharge Clinical Impression: Upper respiratory infection Qualifiers: URI type: unspecified viral URI Qualified Code(s): J06.9 - Acute upper respiratory infection, unspecified Patient Disposition: Home Condition: Stable Instructions: Antibiotic Form, Upper Respiratory Infection (ED) Additional Instructions: Your rapid COVID, flu, rapid strep swab was negative today at [facility]. You will be notified in a few days if the culture comes back positive for strep, and appropriate antibiotics will be called in for you at that time. Your symptoms are likely due to a viral illness, which is not treated with antibiotics. Viral symptoms can be present for up to 7-10 days. Take Tylenol or Motrin as needed for fever or pain. If you take DayQuil and NyQuil do not take additional Tylenol as it are any contains Tylenol in it. Take dexamethasone as directed. Use benzonatate tablets as needed for cough. Support your immune system with vitamins such as vitamin-C, vitamin-D, B vitamins, and zinc. Rest and stay hydrated. Follow up with your PCP in 5-7 days if symptoms are not improving. Go to the ER immediately if you developed chest pains, vomiting, difficulty breathing or swallowing, uncontrollable fevers, or any serious concerns. Patient Language: Qatari Prescriptions: New dexamethasone 6 mg tablet 6 mg PO DAILY 1 Days Qty: 1 0RF benzonatate 200 mg capsule 200 mg PO BID PRN (Reason: cough) Qty: 20 0RF No Action amlodipine 5 mg tablet See Rx Instructions .ROUTE .COMPLEX Qty: 90 1RF Dose Instruction: TAKE 1 TABLET BY MOUTH DAILY Rx Instructions: TAKE 1 TABLET BY MOUTH DAILY Follow-up/Referrals: Paula Arreguin, SURVEY RESEARCH TEACHER [Primary Care Provider, Family Practice] Stand Alone Forms: Work/School Release IP Time of Disposition: 08:44
== END 2025-02-04 08:52 | disposition home or self-care (01) ==
PROVIDERS: PCP Nurse Practitioner Family
DX: J06.9 Acute upper respiratory infection, unspecified (principal); Z20.822 Contact with and (suspected) exposure to COVID-19; F12.90 Cannabis use, unspecified, uncomplicated; I10 Essential (primary) hypertension; Z87.891 Personal history of nicotine dependence
CPT/HCPCS: 87081; 87426; 87804; 87880; 99213; G0463

== ENCOUNTER 2025-02-07 10:45 | Emergency (ER) | payer BC, SELFPAY ==
--- NOTE | 2025-02-07 10:48 | ED_ITS ---
HPI - URI/Sore Throat General Chief Complaint: Upper Respiratory Infection Stated Complaint: Sinus Time Seen by Provider: 02/07/25 10:49 Source: patient Mode of arrival: ambulatory Limitations: no limitations History of Present Illness HPI Narrative: patient is a 49-year-old female who presents with 5 days of nasal congestion, cough that is worse at night and fatigue. Reports fever up to 102. Patient was seen here 3 days ago and was given a 1 time dose of dexamethasone and Tessalon Perles. Patient states her symptoms are not improving. Related Data Allergies Allergy/AdvReac Type Severity Reaction Status Date / Time No Known Allergies Allergy Verified 02/07/25 10:50 Review of Systems Review of Systems: All systems reviewed & are unremarkable except as noted in HPI and below Constitutional: Constitutional: Denies chills, Reports fatigue, Reports fever(s), Denies headache(s), Denies malaise and Denies weakness Eyes: Eyes: Denies blurry vision, Denies itchy eyes and Denies loss of vision ENT: Denies otalgia, Denies headache(s), Reports nasal congestion, Denies sinus pain and Denies sore throat Cardiovascular: Cardiovascular: Denies chest pain, Denies irregular heart rhythm and Denies dyspnea Respiratory: Respiratory: Reports cough and Denies dyspnea Gastrointestinal: Gastrointestinal: Denies abdominal pain, Denies diarrhea, Denies nausea and Denies vomiting Musculoskeletal: Musculoskeletal: Denies back pain, Denies myalgias and Denies arthralgias Integumentary/Breasts: Skin/Breast: Denies pruritus and Denies rash Neurologic: Denies headache(s), Denies loss of vision and Denies weakness Psychiatric: Psychiatric: Reports no additional psychiatric complaints Endocrine: Endocrine: Denies fatigue Allergic/Immunologic: Allergic/Immunologic: Denies itchy eyes PMFSH Past Medical History Medical History Chronic pain syndrome Polysubstance use disorder Menometrorrhagia Hypertension Surgical History Surgical History History of robot-assisted laparoscopic hysterectomy (12/21/21) With bilateral salpingectomy. History of tonsillectomy Family History Family History Daughter No problems noted. Mother Breast cancer Grandparent Diabetes mellitus Sibling Breast cancer Social History Social History Social History: Surrogate medical decision maker: Katrina Smalls, . Code status: Full code. Smoking packs per day: 0.75 Smoking cigarettes per day: 15.0 Years smoked: 20 Smoking pack-years: 15.00 Smoking status: Former smoker Tobacco type: cigarettes Smoking end date: 03/18/14 Alcohol intake: current Drinks per week: 6 Substance use: current Substance use type: marijuana Other substance usage details: 2 x week Do You Feel Safe in your Home?: Yes Lack of Transportation: No Lack of Food: Never True Current Housing: I Have Housing Concerned About Future Housing: Decline to Answer Difficulty Paying Gas/Electric Bills: Decline to Answer Difficulty Paying for Meds: Decline to Answer Currently Unemployed: No Education: Bachelor's Degree Difficulty w/ Childcare or Family Care: No Living arrangements: with family Additional living arrangements comments: . Lives with in [place]. She has 2 adult children. 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 Gender identity (if verbalized by the patient): Female Sexual Orientation (if Verbalized by the Patient): Lesbian, Rider, or Homosexual Spiritual care concerns: No Comments At time of signature, agree with nursing past medical, surgical, social and family history. There is no relevant family history pertinent to the presenting complaint. Exam Const: General: cooperative, healthy appearing, comfortable, no acute distress and well nourished Nutritional Appearance: well nourished Orientation/consciousness: patient oriented x3 Limitations: no limitations HENMT: Head: normal to inspection, normocephalic and atraumatic Ears: hearing grossly normal bilaterally, external ears normal, TM's normal bilaterally, EAC's normal and no periauricular adenopathy Face/Nose/Sinus: Normal external nose present, Abnormal mucous membranes and turbinates present erythematous bilateral and diffuse, normal facial exam, sinuses nontender and face symmetric Face and sinus: normal facial exam, sinuses nontender and face symmetric Mouth: Yes Normal oral and palatal mucosa present, Yes lip normal, Yes tongue normal, Yes Normal salivary glands and ducts present, Yes oropharynx normal and Yes moist mucous membranes Teeth and gingiva: dentition normal Throat: posterior oropharynx normal, tonsils normal and uvula midline Eyes: General: appearance normal, both eyes and all related structures Alignment and Position: alignment normal and position normal Periorbital: periorbital findings normal Eyelids: eyelids normal Pupils: Equal, round and reactive pupils present Neck: Neck: normal visual inspection, full ROM, no lymphadenopathy and supple Chest: Chest palpation & inspection: normal inspection of the chest and normal palpation of entire chest wall Resp: Effort & Inspection: normal respiratory effort and able to speak in complete sentences Auscultation: clear to auscultation bilaterally, no crackles, no rales, no rhonchi and no wheezes Cardio: Rate: regular rate Rhythm: regular rhythm Heart sounds: S1 normal heart sound present and S2 normal heart sound present GI: Inspection: normal to inspection Skin: General skin exam: normal color and no rashes or lesions noted Neuro: General: patient oriented x3 and moves all extremities Cranial nerves: Yes Equal, round and reactive pupils present Speech: normal speech Gait exam (Neuro): Normal gait present Extrem: General: normal to inspection, full ROM and no edema Psych: Appearance: grossly normal and well kempt Mental Status: mental status grossly normal Speech and movement: Normal speech and movement present Affect: normal affect Attitude: cooperative Thought process: Normal thought process present Course Course Emergency Course: Discharge instructions reviewed with patient, as well as provided in writing per nursing staff. The instructions also include specific and strict return/GO TO THE ER as well as f/u information. All questions have been answered, and the patient deny any further questions with discharge and discharge plan. Portions of this record may have been created with voice recognition software Level of Care: Express Care Visit Vital Signs Vital signs: Vital Signs Temperature 36.4 C L 02/07/25 10:58 Pulse Rate 79 02/07/25 10:58 Respiratory Rate 18 02/07/25 10:58 Blood Pressure 130/86 02/07/25 10:58 Pulse Oximetry 98 02/07/25 10:58 Oxygen Delivery Room Air 02/07/25 10:58 Temperature 36.4 C L 02/07/25 10:58 Pulse Rate 79 02/07/25 10:58 Respiratory Rate 18 02/07/25 10:58 Blood Pressure 130/86 02/07/25 10:58 Pulse Oximetry 98 02/07/25 10:58 Oxygen Delivery Room Air 02/07/25 10:58 Reviewed MDM - URI/Sore Throat MDM Narrative Medical decision making narrative: Pt well hydrated appearing, in no respiratory distress, hemodynamically stable. Recommend supportive care. The patient is stable at time of discharge the clinical impression was discussed and the patient was given the opportunity to ask questions, which were addressed as completely as possible given the information available at present. Anticipatory guidance and return to care precautions were discussed and the importance of primary care follow-up was stressed and encouraged. The patient voiced understanding of the plan, indications to return, and the need for follow-up. Exam findings show no acute concerns or changes Patient is appropriate for outpatient treatment and follow-up. Differential diagnosis considered: Segundo virus, strep pharyngitis, allergic rhinitis, upper respiratory tract infection, sinusitis, rhinosinusitis, nasopharyngitis. viral pharyngitis, otitis media, otitis externa, otitis effusion, foreign body, cerumen impaction, viral syndrome, and influenza.? Medical Records Attestation: I reviewed the patient's medical records. Lab Data Attestation: I reviewed the patient's lab results. Lab results narrative: COVID, FLU, and strep negative Discharge Plan Discharge Clinical Impression: Upper respiratory infection Qualifiers: URI type: unspecified viral URI Qualified Code(s): J06.9 - Acute upper respiratory infection, unspecified Patient Disposition: Home Condition: Stable Instructions: Upper Respiratory Infection (ED) Additional Instructions: use cough syrup as needed for cough. Use inhaler with spacer as needed. Other symptomatic treatments include: -Alternate Tylenol and Motrin per package directions for fever or pain: Tylenol 650-1000mg by mouth every 4-6 hours. Do not exceed 4000mg in 24 hours. Advil (Ibuprofen) 600 mg by mouth every 6 hours. Do not exceed 2400mg in 24 hours. 8 AM: Tylenol 11 AM: Ibuprofen 2 PM: Tylenol 5 PM: Ibuprofen 8 PM: Tylenol 11 PM: Ibuprofen 2 AM: Tylenol 5 AM: Ibuprofen -Antihistamine medication such as Benadryl at night and Zyrtec/Claritin/Vivian during the day can help improve symptoms. -Use Flonase twice a day for 5 days then daily to help reduce the inflammation and dry up your sinuses. -You can also use Sudafed or Mucinex. Be sure to drink plenty of water with these medications at least 8 ounces with every dose and it is important to drink 8 to 10 glasses of water per day. Water is a natural decongestant -Eat and drink things that are easy to swallow, like tea or soup, or popsicles. -Oral rinses such as: Salt water gargles and/or may use topical anesthetic (eg. Chloraseptic spray) or lozenges to relieve dryness or throat pain). -Frequent hand washing or hand human resources training manager is one of the best ways to prevent spread of infection. -Using a vaporizer or humidifier at night will also help thin secretions and help with coughing up phlegm. Call your Primary Care Doctor and make a follow-up appointment in 3 days. If your cough worsens, you develop a fever greater than 103, you develop shaking chills, a fast heartbeat, trouble breathing and/or feel you are are breathing much faster than usual, call your Primary Care Doctor or go to the ER. Patient Language: Djiboutian Prescriptions: New promethazine-DM 6.25-15 mg/5 mL syrup 5 ml PO Q4-6H PRN (Reason: cough) Qty: 118 0RF albuterol sulfate 90 mcg/actuation HFA aerosol inhaler 2 puff inhalation QID PRN (Reason: shortness of breath or wheezing) Qty: 6.7 0RF fluticasone propionate [Flonase Allergy Relief] 50 mcg/actuation spray,suspension 1 spray intranasal DAILY Qty: 16 0RF Rx Instructions: administer into each nostril loratadine 10 mg tablet 10 mg PO DAILY Qty: 30 0RF (DME) Aerochamber MV Spacer See Rx Instructions .Route Qty: 1 0RF Rx Instructions: As directed No Action benzonatate 200 mg capsule 200 mg PO BID PRN (Reason: cough) Qty: 20 0RF amlodipine 5 mg tablet See Rx Instructions .ROUTE .COMPLEX Qty: 90 1RF Dose Instruction: TAKE 1 TABLET BY MOUTH DAILY Rx Instructions: TAKE 1 TABLET BY MOUTH DAILY Follow-up/Referrals: Paula Arreguin APRN [Primary Care Provider, Family Practice] - 3 Days Stand Alone Forms: Work/School Release IP Time of Disposition: 11:34
[2025-02-07 10:58] VITALS: BP 130/86; PULSE 79; RESP 18; TEMP 36.4; O2SAT 98
[2025-02-08 11:51] LABS: EDCOVIDSCREEN Negative (Negative); EDINFLUASCREEN Negative (Negative); EDINFLUBSCREEN Negative (Negative)
[2025-02-08 11:51] LABS: EDSTREPNEGPOS1 Negative (Negative)
== END 2025-02-07 11:45 | disposition home or self-care (01) ==
PROVIDERS: Emergency Provider Nurse Practitioner Family; PCP Nurse Practitioner Family
DX: J06.9 Acute upper respiratory infection, unspecified (principal); Z20.822 Contact with and (suspected) exposure to COVID-19; I10 Essential (primary) hypertension; Z87.891 Personal history of nicotine dependence
CPT/HCPCS: 87081; 87426; 87804; 87880; 99213; G0463